=== PATIENT | male | born 1945 | race Caucasian/White ===

== ENCOUNTER 2019-12-26 09:47 | Outpatient (CLI) | payer MEDICARE, SELFPAY ==
--- NOTE | 2019-12-26 09:59 | FL_ITS ---
WS: [id number] FL barium swallow modifd [id number] REASON FOR EXAM: Oropharyngeal dysphagia FLUOROSCOPY TIME: 2.5 minutes FINDINGS: Modified barium swallow was performed by speech pathology with fluoroscopy the provided by radiology. Please see their workup for details. There was no gross abnormalities noted. FL/FL barium swallow modifd [id number] IMPRESSION: Modified barium swallow.
== END 2019-12-26 09:48 | disposition home or self-care (01) ==
LOC: RAD 09:52
PROVIDERS: Family Provider Internal Medicine; PCP Internal Medicine; Visit Provider Internal Medicine
DX: R13.12 Dysphagia, oropharyngeal phase (principal)
CPT/HCPCS: 74230; 92611

== ENCOUNTER 2021-04-14 14:14 | Outpatient (CLI) | payer OTHER, SELFPAY ==
--- NOTE | 2021-04-14 14:22 | CT_ITS ---
WS: [id number] CT NECK TECHNIQUE: Contrast-enhanced CT of the neck with coronal and sagittal reformatted images. CLINICAL INFORMATION: ORAL PHARYNGEAL LESION COMPARISON: None. DLP: 1216.[address] scans at [facility] use at least one of these dose optimization techniques: automat ed exposure control; mA and/or kV adjustment per patient size (includes targeted exams where dose is matched to clinical indication); or iterative reconstruction. FINDINGS: Lung apices are well aerated. Partially visualized intracranial contents are normal. Normal posterior fossa. Mastoid air cells are well aerated. Opacification left maxillary sinus with inspissated high attenuation secretions. Paranasal sinuses are otherwise well aerated. Normal posterior nasopharynx. Normal parapharyngeal fat. Submandibular glands are normal. Normal paro tid glands. Normal parapharyngeal fat. A few tonsillar calcifications. No evidence of supraglottic or glottic mass. Normal prevertebral soft tissues. Nodular right thyroid gland with a few nodules the l argest measuring approximately 10 mm. No cervical lymphadenopathy. Mild spondylitic changes cervical spine. CT/CT neck w con* [id number] IMPRESSION: 1. No evidence of supraglottic or glottic mass. 2. Complete opacification left maxillary sinus with inspissated secretions. 3. Paranasal sinuses and mastoid air cells are otherwise well aerated. 4. No cervical lymphadenopathy. 5. Normal salivary glands. 6. A few small nodules in the right thyroid largest measuring up to 10 mm. Thi s can be followed up with ultrasound on an elective basis.
[2021-04-14] MEDS: iohexol 300 mg/mL 100 mL Btl IV (14:51)
== END 2021-04-14 14:15 | disposition home or self-care (01) ==
PROVIDERS: PCP Internal Medicine; Visit Provider Family Medicine
DX: J39.2 Other diseases of pharynx (principal); E04.2 Nontoxic multinodular goiter
CPT/HCPCS: 70491; Q9967

== ENCOUNTER 2021-05-21 08:17 | Outpatient (CLI) | payer OTHER, MEDICARE, SELFPAY ==
--- NOTE | 2021-05-21 08:45 | USCV_ITS ---
Jaleel Latham Age: 75 Gender: M : 1945 Exam Date: 05/21/2021 08:43 Ordering Phys: Ariana Diamond MD Technologist: Lashell Nunn Exam Location: [facility] – [place] Indication: BLE CRAMPING Risk Factors: Previous Vascular Surgery: RIGHT LEFT BP: 160.0 / BP: 175.0/ 0 0 Waveform Velocity (cm/s) Velocity (cm/s) Waveform Triphasic 108.4 Iliac Prox 89.9 Triphasic Triphasic 106.2 Iliac Mid 82.2 Triphasic Triphasic Iliac Distal Triphasic 94.7 84.2 Triphasic 101.5 MEDICAL ASSEMBLER 83.2 Triphasic Biphasic 133.4 SFA Prox 115.7 Biphasic Biphasic 97.4 SFA Mid 128.8 Biphasic Biphasic 113.6 SFA Dist 98.1 Biphasic Biphasic 104.7 POP 104.7 Biphasic Triphasic 88.2 SHIM PLUG CUTTER 133.4 Triphasic Biphasic 7.0 DPA 57.4 Biphasic 1.1 FRIDA 1.1 FINDINGS Mild diffuse plaques in the iliac and femoral arteries bilaterally Near normal Doppler flow velocities Normal resting ABIs bilaterally CONCLUSIONS No evidence of any significant arterial obstruction, based on the above findings. Dr Cathy Hayes MD [facility] (Electronically Signed) Final Date: 22 May 2021 16:23 S
== END 2021-05-21 08:18 | disposition home or self-care (01) ==
LOC: RAD 08:25
PROVIDERS: PCP Family Medicine; Visit Provider Family Medicine
DX: R25.2 Cramp and spasm (principal)
CPT/HCPCS: 93925

== ENCOUNTER 2022-02-01 09:08 | Inpatient (IN) | payer OTHER, MEDICARE, SELFPAY ==
[2022-02-01] VITALS (94 sets, daily range): BP systolic 179–248; BP diastolic 69–136; PULSE 36–66; RESP 9–30; TEMP 36.5–36.9; O2SAT 88–97; BMI 30.9
--- NOTE | 2022-02-01 09:11 | XR_ITS ---
WS: [id number] PORTABLE CHEST HISTORY: dyspnea/cough COMPARISON: None available. Mildly coarse echotexture throughout the lungs. May represent chronic interstitial lung disease or mi ld edema. No pleural effusion or pneumothorax. Cardiac size: Normal. Mediastinum/Aorta: Mild ectasia aorta. RIGHT rotator cuff calcific tendinitis. The fibular pads over the thorax. XR/XR chest 1V portable [id number] IMPRESSION: 1. No pneumonia. 2. Mild interstitial thickening throughout both lungs. Differential includes i nterstitial lung disease and mild interstitial edema. 3. Mildly ectatic aorta.
--- NOTE | 2022-02-01 09:11 | ECG_ITS ---
[facility] Test Date: 2022-02-01 Pat Name: Jaleel Latham Department: Room: Gender: Male Tie Carrier: : 1945 Requested By: Chadwick Ramirez Order Number: [id number] Bart MD: Cathy Hayes M.D. Measurements Intervals [place] Rate: 45 P: ND: QRS: 70 QRSD: 137 T: -66 QT: 504 QTc: 437 Interpretive Statements Third-degree heart block with junctional escape rhythm Views nonspecific due change INTRAVENTRICULAR CONDUCTION DELAY [130+ ms QRS DURATION] CRITICAL TEST RESULT No previous ECG available for comparison Electronically Signed On 02-01-2022 22:59:01 CDT by Cathy Hayes M.D. [id number]
[2022-02-01] MEDS: aspirin 81 mg Chew Tablet 324 MG PO (09:26)
--- NOTE | 2022-02-01 09:31 | ED_ITS ---
HPI - Chest Pain General: Chief Complaint: Chest Pain Stated Complaint: chest pain / sob Time Seen by Provider: 02/01/22 09:10 Source: patient Mode of arrival: ambulatory Limitations: no limitations History of Present Illness: 76-year-old male presents emergency room complaining of chest discomfort intermittently for the last week as well as a slow heart rate. He is not on any negative inotropes is not on any beta- blockers or calcium channel blockers he has no history of atrial fibrillation. No previous history of atrial fibrillation or any other arrhythmias that he is aware of. No known coronary artery disease. MD complaint: chest pain Onset (ago): week(s) (1) Timing of current episode: episodic Prior episodes: Yes Onset: during rest Pain location: substernal Pain radiation: none Severity: mild Quality: aching and heaviness Relieving factors: nothing Exacerbating factors: nothing Associated symptoms: Reports palpitations; Deny abdominal pain, diaphoresis, dyspnea, fever(s), leg edema, nausea, sense of impending doom, syncope or vomiting Treatment prior to arrival: none Review of Systems Const: Denies: fever(s) or diaphoresis ENMT: Denies: throat pain, ear or mastoid pain, nasal discharge or nasal congestion Card: Reports: chest pain, palpitations and irregular heart rhythm; Denies: syncope Resp: Denies: dyspnea GI: Denies: abdominal pain, nausea or vomiting : Denies: flank pain, dysuria, urinary frequency or urinary urgency Skin/Breast: Denies: rash or pruritus PFSH ED PFSH: Medical History Hyperlipidemia Hypertension Family History (Updated 02/01/22 @ 11:03 by Jerardo Pablo MD) Other Cancer Social History (Updated 02/01/22 @ 11:03 by Jerardo Pbalo MD) Smoking and tobacco status: never smoked Alcohol intake: never Physical Exam Const: COMMON NORMALS: no acute distress GENERAL APPEARANCE: cooperative and comfortable ORIENTATION/CONSCIOUSNESS: Yes awake, Yes oriented to person, Yes oriented to place and Yes oriented to time HENMT: COMMON NORMALS: normocephalic, atraumatic and hearing grossly normal bilaterally HEAD & SCALP: normocephalic and atraumatic Neck/C-Spine: COMMON NORMALS: no JVD Resp: COMMON NORMALS: normal respiratory effort, No retractions, No use of accessory muscles and clear to auscultation bilaterally AUSCULTATION: clear to auscultation bilaterally Cardio: COMMON NORMALS: no JVD, regular rhythm and No murmurs present (Cardio) RATE: bradycardic RHYTHM: regular rhythm GI: COMMON NORMALS: Soft to palpation and No hepatosplenomegaly present AUSCULTATION: Yes normoactive bowel sounds PALPATION: Yes Soft to palpation, No Tenderness to palpation present (GI), No Guarding due to palpation present (GI) and Yes No hepatosplenomegaly present Extremity: COMMON NORMALS: normal to inspection, capillary refill normal, no clubbing, cyanosis or edema, no calf tenderness and no pedal edema Neuro: SENSORIUM/ORIENTATION: Yes oriented to person, Yes oriented to place and Yes oriented to time Skin: COMMON NORMALS: no rashes or lesions noted GENERAL SKIN EXAM: no rashes or lesions noted Course Vital Signs: Vital signs: Vital Signs Temperature 98.2 F 02/01/22 09:28 Pulse Rate 47 L 02/01/22 11:48 Respiratory Rate 16 02/01/22 11:48 Blood Pressure 199/88 02/01/22 11:48 Pulse Oximetry 94 02/01/22 11:48 MDM - Chest Pain Medical Decision Making Symptomatic bradycardia with what looks like a third-degree heart block. Reviewed EKGs and rhythm strips. Discussed with cardiology and with Dr. Waterman. Dr. Waterman discussed with Dr. Riddle. They will consult cardiology will admit to ICU monitor to evaluate for need for pacemaker. There is no acute ST changes on the EKG first troponin is 42 patient has serial troponins pending, Dr. Pablo will follow them out in the ICU. Medical Records I reviewed the patient's medical records. Lab Data I reviewed the patient's lab results. : 02/01/22 09:29 02/01/22 09:29 Radiology Impressions Chest X-Ray 02/01/22 09:11 IMPRESSION: 1. No pneumonia. 2. Mild interstitial thickening throughout both lungs. Differential includes interstitial lung disease and mild interstitial edema. 3. Mildly ectatic aorta. Laboratory Results WBC 6.3 10^3/uL (4.0-10.0) 02/01/22 09:29 RBC 5.38 10^6/uL (4.1-5.3) H 02/01/22: Hgb 16.1 g/dL (11.7-16.6) 02/01/22: Hct 47.9 % (42.0-52.0) 02/01/22: MCV 89.0 fl (80-94) 02/01/22: MCH 29.9 pg (28.0-34.0) 02/01/22 MCHC 33.6 g/dL (30.0-36.0) 02/01/22: RDW 13.0 % (12.1-15.1) 02/01/22: Plt Count 146 10^3/cmm (130-400) 02/01/22 MPV 12.5 fL (7.4-10.4) H 02/01/22: Neut % (Auto) 58.9 % 02/01/22: Lymph % (Auto) 28.9 % 02/01/22: [place] % (Auto) 9.1 % 02/01/22: Eos % (Auto) 2.4 % 02/01/22 Baso % (Auto) 0.5 % 02/01/22 Neut # (Auto) 3.70 10^3/uL (1.8-7.7) 02/01/22: Lymph # (Auto) 1.8 10^3/uL (0.8-4.8) 02/01/22: [place] # (Auto) 0.6 10^3/uL (0.2-0.9) 02/01/22: Eos # (Auto) 0.2 10^3/uL (0.0-0.8) 02/01/22 Baso # (Auto) 0.0 10^3/uL (0.0-0.1) 02/01/22 Nucleated RBC % (auto) 0 % 02/01/22 Nucleated RBCs # 0.0 /100WBC 02/01/22: Sodium 138 mmol/L (136-145) 02/01/22: Potassium 4.2 mmol/L (3.5-5.1) 04/11/22 09:29 Chloride 107 mmol/L (98-107) 02/01/22 09:29 Carbon Dioxide 20 mmol/L (22-29) L 02/01/22 09:29 Anion Gap 15.2 (5-19) 02/01/22 09:29 BUN 20 mg/dL (8-23) 02/01/22 09:29 Creatinine 1.0 mg/dL (0.7-1.2) 02/01/22 09:29 GFR Calculation Not Reportable 02/01/22:29 Glucose 115 mg/dL (65-115) 02/01/22 09:29 Calculated Osmolality 290 mOsm/kg (285-295) 02/01/22 09:29 Calcium 8.9 mg/dL (8.5-10.5) 02/01/22 09:29 Magnesium 2.1 mg/dL (1.7-2.3) 02/01/22 09:29 Total Bilirubin 0.9 mg/dL (0.15-1.2) 02/01/22 09:29 AST 14 U/L (0-40) 02/01/22 09:29 ALT 19 U/L (0-41) 02/01/22 09:29 Alkaline Phosphatase 79 IU/L (40-130) 02/01/22 09:29 Troponin T Baseline 42 ng/L (0-15) H 02/01/22 09:29 Total Protein 6.3 g/dL (6.6-8.7) L 02/01/22 09:29 Albumin 3.6 g/dL (3.5-5.2) 02/01/22 09:29 Globulin 2.7 g/dL (1.3-4.6) 02/01/22 09:29 TSH 3.41 uIU/mL (0.27-4.20) 02/01/22 09:29 Discharge Plan Discharge Patient Disposition: Admitted As Inpatient Admit Provider: Jerardo Pablo Condition: Stable Coding Level of Care Code ED Engineering Secretary for Chg Fwd Exam Comprehensive
[2022-02-01 09:34] LABS: Basophils % 0.5 %; Eosinophils # 0.2 10^3/uL (0.0-0.8); Eosinophils % 2.4 %; Hematocrit 47.9 % (42.0-52.0); Hemoglobin 16.1 g/dL (11.7-16.6); Lymphocytes # 1.8 10^3/uL (0.8-4.8); Lymphocytes % 28.9 %; Mean Corpuscular HGB Conc 33.6 g/dL (30.0-36.0); Mean Corpuscular Hemoglobin 29.9 pg (28.0-34.0); Mean Platelet Volume 12.5 fL (7.4-10.4); Monocytes # 0.6 10^3/uL (0.2-0.9); Monocytes % 9.1 %; Neutrophils % 58.9 %; Nucleated Red Blood Cells % 0 %; Platelet Count 146 10^3/cmm (130-400); Red Blood Count 5.38 10^6/uL (4.1-5.3); White Blood Count 6.3 10^3/uL (4.0-10.0)
[2022-02-01] MEDS: nitroglycerin 1 gm/inch oint Pkt 1 INCH TOPICAL ×3 (09:42→17:27)
[2022-02-01] MEDS: FUROsemide 10 mg/mL SDV 4mL 40 MG IVP (10:12)
[2022-02-01 10:23] LABS: Troponin(5th) Baseline 42 ng/L (0-15)
[2022-02-01 10:26] LABS: Alanine Aminotransferase 19 U/L (0-41); Albumin Level 3.6 g/dL (3.5-5.2); Alkaline Phosphatase 79 IU/L (40-130); Anion Gap 15.2 (5-19); Aspartate Amino Transferase 14 U/L (0-40); Blood Urea Nitrogen 20 mg/dL (8-23); Calcium 8.9 mg/dL (8.5-10.5); Carbon Dioxide 20 mmol/L (22-29); Chloride 107 mmol/L (98-107); Globulin 2.7 g/dL (1.3-4.6); Glucose 115 mg/dL (65-115); Osmolality Calculated 290 mOsm/kg (285-295); Potassium 4.2 mmol/L (3.5-5.1); Sodium 138 mmol/L (136-145); Total Bilirubin 0.9 mg/dL (0.15-1.2); Total Protein 6.3 g/dL (6.6-8.7)
--- NOTE | 2022-02-01 10:59 | P.HP_ITS ---
Providers/Chief Complaint Admitting Physician: Jerardo Pablo MD Primary Care Provider: Ariana Diamond MD Chief Complaint: chest pain / sob History of Present Illness Jaleel Latham is a 76 year old male presenting from home with 5 to 7 days of severe fatigue, shortness of breath, chest discomfort. He reports symptoms are significantly exacerbated with any kind of exertion. He has not been able to really care for his , who recently had an orthopedic surgery. He denies any fever, cough. He reports currently, on oxygen and with Nitropaste he does not have any chest discomfort or shortness of breath sitting completely still. He is also received aspirin, and a dose of Lasix in the emergency department. He is not nauseous. He denies any previous cardiac history. Review of Systems General: Reports: 10 or more systems reviewed and unremarkable except in HPI and below Const: Reports: fatigue and malaise; Denies: fever(s) or chills Eyes: Denies: change in vision ENMT: Denies: throat pain Card: Reports: chest pain and dyspnea on exertion Resp: Reports: dyspnea GI: Denies: abdominal pain, nausea, hematochezia or melena : Denies: flank pain or urinary urgency Musc: Denies: neck pain Skin/Breast: Denies: rash Neuro: Denies: headache(s) Psych: Denies: anxiety or depression Endo: Denies: polyuria Denis/Lymph: Denies: easy bruising All/Imm: Denies: urticaria Medications/Allergies Home Medications Medication Instructions Recorded Confirmed Last Taken Type acetaminophen 500 mg tablet 500 mg PO BEDTIME 02/01/22 02/01/22 01/31/22 History atorvastatin 20 mg tablet 20 mg PO QAM 02/01/22 02/01/22 02/01/22 05:00 History diclofenac sodium 1 % topical gel 2 g TOPICAL BID PRN 02/01/22 02/01/22 Unknown History (Voltaren Arthritis Pain) glucosamine sulf dipot 1 cap PO BID 02/01/22 02/01/22 02/01/22 05:00 History chlr,msm,chond 550 mg-C 30 mg-carson 1 mg capsule (Glucosamine Chondroitin) lidocaine 5 % topical patch 1 patch TOPICAL DAILY PRN 02/01/22 02/01/22 Unknown History lisinopril 10 mg tablet 10 mg PO QAM 0402/01/22 02/01/22 05:00 History tamsulosin 0.4 mg capsule 0.4 mg PO BEDTIME 02/01/22 02/01/22 01/31/22 History Allergies Allergy/AdvReac Type Severity Reaction Status Date / Time No Known Allergies Allergy Verified 02/01/22 11:02 PFSH Acute PFSH: Medical History Hyperlipidemia Hypertension Family History (Updated 02/01/22 @ 11:03 by Jerardo Pablo MD) Other Cancer Social History (Updated 02/01/22 @ 11:03 by Jerardo Pablo MD) Smoking and tobacco status: never smoked Alcohol intake: never Other PFSH information: Supplemental PFSH Information: Some type of benign tumor excision, soft tissue below umbilicus, suspect lipoma or sebaceous cyst. Vitals/I&O/Wt Last Vital Signs Temp 98.2 F 02/01/22 09:28 Pulse 36 L 02/01/22 10:14 Resp 13 02/01/22 10:14 BP 204/105 02/01/22 10:14 Pulse Ox 95 02/01/22 10:14 Weight last 48 hrs Weight 87.09 kg Physical Exam Narrative: General exam is a white male, no distress HEENT: Pupils equally round. Oropharynx clear. Neck is supple no lymphadenopathy or thyromegaly Cardiovascular bradycardic, irregular, no murmur Lungs clear to auscultation bilaterally. No wheezes or crackles Abdomen is soft, positive bowel sounds. No obvious organomegaly exam is deferred Extremities no cyanosis clubbing , cap refill brisk. Trace edema is noted. Skin is no rash Neuro no obvious focal deficits. Data : 02/01/22 09:29 02/01/22 09:29 Other Labs: LFTs normal Troponin 42 Albumin 3.6 Calcium 8.9 TSH and magnesium have been ordered Echocardiogram has been ordered Chest x-ray mild interstitial edema EKG demonstrates significant bradycardia. Intraventricular conduction delay is present. I suspect third-degree heart block with junctional escape rhythm. 1 PVC is noted. Official cardiology reading pending. A&P Assessment and plan (1) Heart block AV third degree: Certainly high degree heart block. Official cardiology opinion pending. Pacer pads have been placed. Admit to ICU Check magnesium, TSH, echocardiogram Cardiology consultation Associated with chest discomfort, shortness of breath, severe exertional symptoms. At this point we will keep in bed rest. Nitroglycerin, Lasix, aspirin have been given by the emergency department. Continue nitroglycerin ointment currently No evidence that he has been on calcium channel blockers, or beta blockers. Serial troponins. If significant delta would consider full anticoagulation Hydration Status: Acute (2) Hyperlipidemia: Continue statin, plan lipid profile in the morning Status: Acute (3) Hypertension: Obtain his home medication list. Likely will continue lisinopril in the hospital which is the medication he indicates he is on. Status: Acute Plan History of BPH. Continue Flomax. Full code Lovenox will suffice for DVT prophylaxis Attestations Medical Necessity Statement*: Will need greater than 2 midnight stay for evaluation and treatment of significant bradycardia and high degree AV block. Coding Level of Care Code Acute Sea Air Land Officer for Rere Callaway Diagnoses Heart block AV third degree I44.2 Hyperlipidemia E78.5 Hypertension I10
--- NOTE | 2022-02-01 11:04 | USCV_ITS ---
Jaleel Latham Age: 76 Gender: M : 1945 Exam Date: 02/01/2022 14:31 Ordering Phys: Jerardo Pablo MD Technologist: Lashell Nunn [place]am Location: [facility] [place] Indication: ARRHYTHMIA BP: 187 / 69 HR: 39 Rhythm: Other Technical Quality: Adequate MEASUREMENTS (Male / Female) Normal Values 2D ECHO LV Diastolic Diameter PLAX 5.0 cm 4.2 - 5.9 / 3.9 - 5.3 cm LV Systolic Diameter PLAX 3.1 cm IVS Diastolic Thickness 1.6 cm 0.6 - 1.0 / 0.6 - 0.9 cm IVS Systolic Thickness 2.1 cm LVPW Diastolic Thickness 1.7 cm 0.6 - 1.0 / 0.6 - 0.9 cm LVPW Systolic Thickness 2.0 cm LVOT Diameter 2.0 cm LV Ejection Fraction 2D Teich 69.7 % LV Ejection Fraction MOD 2C 61.8 % LV Ejection Fraction 2C AL 62.0 % LA Diameter 3.6 cm LA Width 4.0 cm LA Height 4.1 cm RA Width 4.5 cm RA Height 5.3 cm Aorta at Sinotubular Diameter 2.8 cm M-MODE Aortic Annulus Diameter 3.4 cm LA Ao Ratio MM 1.0 DOPPLER AV Peak Velocity 210.3 cm/s LVOT Peak Velocity 197.0 cm/s AV Area Cont Eq vti 3.0 cm squared AV Area Cont Eq pk 2.9 cm squared MV Peak Velocity 144.0 cm/s MV Area PHT 2.2 cm squared Mitral E to A Ratio 0.6 MV E' Velocity 35.0 cm/s Mitral E to MV E' Ratio 5.2 Mitral E to LV E' Lateral Ratio 5.2 Mitral E to LV E' Septal Ratio 5.3 TR Peak Velocity 234.2 cm/s TR Peak Gradient 21.9 mmHg TR Mean Velocity 152.0 cm/s TR Mean Gradient 11.2 mmHg TR Velocity Time Integral 61.4 cm TV Peak E Velocity 47.0 cm/s Right Atrial Pressure 3.0 mmHg Pulmonary Artery Systolic Pressu 24.9 mmHg PV Peak Velocity 149.0 cm/s RV Acceleration Time 0.1 s RV Ejection Time 0.3 s RV AcT/ET 0.4 FINDINGS Left Ventricle Normal left ventricular size, systolic function and mildly increased wall thickness, with no regional wall motion abnormalities. Mild concentric left ventricular hypertrophy. Left ventricular ejection fraction is estimated at 65 %. Abnormal diastolic function. Right Ventricle Normal right ventricular size and systolic function, RVSP 25 mmHg. Right Atrium Normal right atrial size. Right atrial pressure estimated at 3 mm Hg. Left Atrium Mildly increased left atrial size. Mitral Valve Structurally normal mitral valve. No mitral valve stenosis. Mild mitral valve regurgitation. Aortic Valve Probably tricuspid aortic valve. No aortic valve stenosis. Mild to moderate eccentric aortic valve regurgitation. Tricuspid Valve Structurally normal tricuspid valve. No tricuspid valve stenosis. Mild tricuspid valve regurgitation. Pulmonic Valve Pulmonic valve not well visualized. No pulmonary valve stenosis. Trace pulmonary valve regurgitation. Pericardium No pericardial effusion. Aorta Normal size aortic root. Normal-sized inferior vena cava with normal respiratory variation. CONCLUSIONS 1. Normal left ventricular size, systolic function and mildly increased wall thickness, with no regional wall motion abnormalities. Left ventricular ejection fraction is estimated at 65 %. Abnormal diastolic function. 2. Mild mitral valve regurgitation. 3. Mild to moderate eccentric aortic valve regurgitation. 4. No prior similar studies to compare. Gina Riddle MD (Electronically Signed) Final Date: 01 February 2022 17:46 S
--- NOTE | 2022-02-01 11:11 | ECG_ITS ---
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 Measurements Intervals [place] Rate: 45 P: MD: QRS: -61 QRSD: 137 T: 85 QT: 517 QTc: 452 Interpretive Statements Third-degree heart block with a junctional escape beats/premature supraventricular beats with ABERRANT CONDUCTION OR VENTRICULAR PREMATURE COMPLEXES RIGHT BUNDLE BRANCH BLOCK [120+ ms QRS DURATION, UPRIGHT V1, 40+ ms S IN I/aVL/V4/V5/V6].LEFT ANTERIOR FASCICULAR BLOCK [QRS AXIS <= -45, QR IN I, RS IN II].MODERATE VOLTAGE CRITERIA FOR LVH, CONSIDER NORMAL VARIANT [MEETS CRITERIA IN ONE OF: R(aVL), S(V1), R(V5), R(V5/V6)+S(V1)] POSSIBLE SEPTAL MYOCARDIAL INFARCTION , OF INDETERMINATE AGE [30 ms Q WAVE IN V1/V2].Compared to ECG 02/01/2022 09:23:03 Ventricular premature complex(es) now present.Aberrant conduction of supraventricular beat(s) now present.Right bundle-branch block now present Left anterior fascicular block now present.Myocardial infarct finding now present.Sinus rhythm no longer present.Intraventricular conduction delay no longer present Electronically Signed On 02-01-2022 23:11:53 CDT by Cathy Hayes M.D. [id number]
--- NOTE | 2022-02-01 11:16 | PC.PHAR ---
pt states he thinks the medications entered are the only meds he takes-called pts bunny states she thinks the medications entered are the only meds the pt takes also-pt states [facility] about 8:30 and states the [facility] gave him 2 prescriptions for something pt states he didnt fill the rxs states he came here
[2022-02-01 11:27] LABS: Magnesium 2.1 mg/dL (1.7-2.3); Thyroid Stimulating Hormone 3.41 uIU/mL (0.27-4.20)
[2022-02-01] MEDS: enoxaparin 40 mg/0.4 mL Syringe SUBCUT (12:33)
[2022-02-01 12:35] LABS: Troponin 5 2HR 21.34 ng/L (0-15)
[2022-02-01 12:36] LABS: Troponin 5 2HR Delta -20.66 ABS# (0-10)
[2022-02-01] MEDS: hyDRALAzine 20 mg/mL INJ 1 mL 10 MG IVP ×2 (14:48→19:42)
--- NOTE | 2022-02-01 15:11 | ECG_ITS ---
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 Measurements Intervals [place] Rate: 47 P: 23 [place]: 240 QRS: -61 QRSD: 136 T: 100 QT: 619 QTc: 550 Interpretive Statements Second-degree type II AV block with intermittent aberrant conduction POSSIBLE LEFT ATRIAL ENLARGEMENT [-0.1mV P-WAVE IN V1/V2] INTRAVENTRICULAR CONDUCTION DELAY [130+ ms QRS DURATION] LEFT VENTRICULAR HYPERTROPHY AND ST-T CHANGE [VOLTAGE CRITERIA PLUS ST/T ABNORMALITY]POSSIBLE SEPTAL MYOCARDIAL INFARCTION , OF INDETERMINATE AGE [30 ms Q WAVE IN V1/V2] PROLONGED QT INTERVAL CRITICAL TEST RESULT Compared to ECG 02/01/2022 11:54:45 First degree AV block now present Intraventricular conduction delay now present ST (T wave) deviation now present.Prolonged QT interval now present Atrial fibrillation no longer present Aberrant conduction of supraventricular beat(s) no longer present Right bundle-branch block no longer present.Left anterior fascicular block no longer present. Myocardial infarct finding still present Electronically Signed On 02-01-2022 23:21:02 CDT by Cathy Hayes M.D. [id number]
[2022-02-01 15:35] LABS: Troponin 5 6HR 38.49 ng/L (0-15)
[2022-02-01 15:41] LABS: Troponin 5 6HR Delta -3.51 ng/L (0-12)
--- NOTE | 2022-02-01 15:47 | PC.NURSE ---
Dr. Pablo notified of patients blood pressure 187/136. Order received for 10mg hydralazine IVP Q4hr. Order followed at 1448.
[2022-02-01] MEDS: morphine 4 mg/mL SDV 1 mL IVP ×2 (15:54→19:31)
[2022-02-01] MEDS: lisinopril 10 mg Tablet PO (16:58)
--- NOTE | 2022-02-01 17:27 | PM.CONSULT ---
Providers/Reason For Consult Consulting Physician/Specialty*: Dr. Riddle, Cardiology Reason for Consult*: High-grade AV block, bradycardia Attending Physician: Jerardo Pablo MD Primary Care Provider: Ariana Diamond MD History of Present Illness History of Present Illness Jaleel Latham is a 76 year old male with past medical history of hypertension, hyperlipidemia and benign prostatic hypertrophy presented for evaluation of bradycardia, tiredness/fatigue dizziness and chest pain. Patient recently underwent surgery and he has been taking care of her at home. For the past week he noticed he was feeling more tired/ fatigued, SOB as well as noticed intermittent episodes of dizziness and few episodes of chest pain described as bruised feeling all over the chest. He checked his blood pressure and heart rate at home and noticed blood pressure ranging systolically 200s and heart rate ranging from 40s to 60s. He presented to ER for further evaluation where he was noted to be in high-grade AV block and hence I was asked to evaluate the patient for further management. Review of Systems General: Reports: 10 or more systems reviewed and unremarkable except in HPI and below Const: Reports: fatigue and malaise; Denies: fever(s) or chills Eyes: Denies: change in vision ENMT: Denies: throat pain Card: Reports: chest pain and dyspnea on exertion Resp: Reports: dyspnea GI: Denies: abdominal pain, nausea, hematochezia or melena : Denies: flank pain or urinary urgency Musc: Denies: neck pain Skin/Breast: Denies: rash Neuro: Denies: headache(s) Psych: Denies: anxiety or depression Endo: Denies: polyuria Denis/Lymph: Denies: easy bruising All/Imm: Denies: urticaria Medications/Allergies Home Medications Medication Instructions Recorded Confirmed Last Taken Type acetaminophen 500 mg tablet 500 mg PO BEDTIME 02/01/22 02/01/22 01/31/22 History atorvastatin 20 mg tablet 20 mg PO QAM 02/01/22 02/01/22 02/01/22 05:00 History diclofenac sodium 1 % topical gel 2 g TOPICAL BID PRN 02/01/22 02/01/22 Unknown History (Voltaren Arthritis Pain) glucosamine sulf dipot 1 cap PO BID 02/01/22 02/01/22 02/01/22 05:00 History chlr,msm,chond 550 mg-C 30 mg-carson 1 mg capsule (Glucosamine Chondroitin) lidocaine 5 % topical patch 1 patch TOPICAL DAILY PRN 02/01/22 02/01/22 Unknown History lisinopril 10 mg tablet 10 mg PO QAM 02/01/22 02/01/22 02/01/22 05:00 History tamsulosin 0.4 mg capsule 0.4 mg PO BEDTIME 02/01/22 02/01/22 01/31/22 History Allergies Allergy/AdvReac Type Severity Reaction Status Date / Time No Known Allergies Allergy Verified 02/01/22 11:02 Current Medications Generic Name Dose Route Start Last Admin Trade Name Freq PRN Reason Stop Dose Admin Enoxaparin Sodium 40 mg 02/01/22 13:00 02/01/22 12:33 Enoxaparin 40 Mg/0.4 Ml Syringe SUBCUT 40 mg Q24H LEV Administration Hydralazine HCl 10 mg 02/01/22 14:13 02/01/22 14:48 Hydralazine 20 Mg/Ml Inj 1 Ml IVP 10 mg Q4H PRN Administration HYPERTENSION Morphine Sulfate 4 mg 02/01/22 11:54 02/01/22 15:54 Morphine 4 Mg/Ml Sdv 1 Ml IVP 4 mg Q4H PRN Administration SEVERE PAIN Nitroglycerin 1 inch 02/01/22 11:15 02/01/22 12:33 Nitroglycerin 1 Gm/Inch Oint Pkt TOPICAL 1 inch Q6H LEV Administration PFSH Acute PFSH: Medical History (Updated 02/01/22 @ 17:40 by Gina Riddle MD) BPH (benign prostatic hyperplasia) Hyperlipidemia Hypertension Family History Other Cancer Social History Smoking and tobacco status: never smoked Alcohol intake: never Vitals/I&O/Wt Last Vital Signs Temp 97.7 F 02/01/22 11:45 Pulse 48 L 02/01/22 16:00 Resp 15 02/01/22 16:00 BP 219/95 02/01/22 16:00 Pulse Ox 92 02/01/22 16:00 02/01/22 02/01/22 02/01/22 06:59 14:59 22:59 Output Total 750 / 750 450 / 1200 Balance -750 / -750 -450 / -1200 Weight last 48 hrs Weight 192 lb Physical Exam Narrative: GENERAL: Averagely built and averagely nourished in no acute distress HEENT: Extraocular movement intact. Pupils equal round reactive to light. No pallor or icterus. NECK: central trachea, No JVD. No carotid bruit. CARDIOVASCULAR SYSTEM: S1-S2 irregular. No murmur rubs or gallops. RESPIRATORY SYSTEM: Chest clear to auscultation. No wheezes rhonchi or rubs heard. No use of accessory muscles. ABDOMEN: Soft, nontender and nondistended. Normal bowel sounds present. EXTREMITIES: No cyanosis, clubbing or edema. No signs of chronic venous insufficiency. 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 No focal neurological deficits. Cranial nerves intact. SKIN: Normal turgor and temperature. No breakdown, rash or nail changes noted. PSYCH: Normal insight and judgment. Data : 02/01/22 09:29 02/01/22 09:29 A&P Assessment and plan (1) Heart block AV third degree: EKG with sinus rhythm with third-degree AV block. A-V dissociation. Interventricular conduction delay. LVH -Patient does not have many CAD risk factors. No active chest pain -Systolic blood pressure in 200's. -Normal LV function with no regional wall motion abnormality. -Patient apparently had junctional escape rhythm with heart rate in mid 40s. Remains asymptomatic while in bed. -normal TSH Case was discussed with Dr. Hayes and decision was made to proceed with dual-chamber permanent pacemaker placement tomorrow afternoon. Patient is left-handed. Status: Acute (2) Hypertension: Blood pressure elevated. -Increase lisinopril to 10 mg twice a day and start on amlodipine 5 mg daily. -Continue to use hydralazine as needed in the meantime. Status: Acute (3) Hyperlipidemia: Status: Acute (4) BPH (benign prostatic hyperplasia): Status: Acute Plan Thank you for allowing me to participate in patient's care. Please feel free to call with questions or concerns. 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
[2022-02-01] MEDS: amlodipine 5 mg Tablet PO (17:58)
[2022-02-01] MEDS: acetaminophen 325 mg Tablet 650 MG PO (18:37)
[2022-02-01] MEDS: tamsulosin 0.4 mg Capsule PO (21:17)
--- NOTE | 2022-02-01 21:52 | PM.MISC ---
Miscellaneous Note Purpose of Documentation: Prepacemaker evaluation Note: This patient admitted to hospital with complaints of headache, dizziness, chest tightness and shortness of breath. He was found to be in third-degree heart block with a heart rate in the 40s and upper 30s. Hemodynamically seems to be stable. She was evaluated by Dr. Riddle. For further management of his condition, he requires a permanent pacer implantation. This patient has no reversible cause for the heart block. He is found to be hypertensive with a blood pressure in the 200 range. He is currently on antihypertensive medications. Echocardiogram revealed normal LV size and ejection fraction. He has mild MR and mild to moderate AR. The chest x-ray showed a normal cardia silhouette with no lung infiltrates. He is afebrile. He was found to have slightly elevated troponin T with no significant delta. The thyroid function is normal. Has no history of any dye allergies. On examination Alert and oriented x3. Not in any acute distress. The first heart sound is variable. Second heart sound is normal. No S3. Chest is clear with no rales or rhonchi. No pericardial rub. Abdomen is nontender. Extremities no center edema. I agree with the permanent pacer implantation for further management of his condition. The risk of bleeding, hematoma, vascular injury, pneumothorax, infection, renal failure and other concomitant complications were explained in detail. The patient understood this well and consented to proceed. We will go ahead and make arrangements for the permanent pacemaker tomorrow
[2022-02-02] VITALS (19 sets, daily range): BP systolic 106–170; BP diastolic 55–92; PULSE 44–96; RESP 6–20; TEMP 36.6–36.8; O2SAT 90–95; BMI 31.3
[2022-02-02] MEDS: hyDRALAzine 50 mg Tablet PO ×4 (02:16→20:30)
[2022-02-02] MEDS: nitroglycerin 1 gm/inch oint Pkt 1 INCH TOPICAL ×3 (02:17→16:15)
[2022-02-02] MEDS: ceFAZolin 1,000 MG in sodium chloride 0.9% (plus) 50 ML 100 MG IV (02:17)
[2022-02-02] MEDS: sodium chloride 0.9% 1,000 ML 75 ML IV (02:27)
[2022-02-02] MEDS: atorvastatin 40 mg Tablet 20 MG PO (05:13)
[2022-02-02] MEDS: lisinopril 20 mg Tablet PO (05:14)
[2022-02-02 06:02] LABS: Basophils % 0.2 %; Eosinophils % 0.3 %; Hematocrit 43.8 % (42.0-52.0); Hemoglobin 15.1 g/dL (11.7-16.6); Lymphocytes # 0.9 10^3/uL (0.8-4.8); Lymphocytes % 10.3 %; Mean Corpuscular HGB Conc 34.5 g/dL (30.0-36.0); Mean Corpuscular Hemoglobin 30.5 pg (28.0-34.0); Mean Corpuscular Volume 88.5 fl (80-94); Mean Platelet Volume 12.6 fL (7.4-10.4); Monocytes # 0.6 10^3/uL (0.2-0.9); Monocytes % 6.7 %; Neutrophils # 7.51 10^3/uL (1.8-7.7); Neutrophils % 82.1 %; Nucleated Red Blood Cells % 0 %; Platelet Count 159 10^3/cmm (130-400); Red Blood Count 4.95 10^6/uL (4.1-5.3); White Blood Count 9.2 10^3/uL (4.0-10.0)
[2022-02-02 06:26] LABS: Blood Urea Nitrogen 22 mg/dL (8-23); Calcium 9.1 mg/dL (8.5-10.5); Carbon Dioxide 21 mmol/L (22-29); Chloride 107 mmol/L (98-107); Chol HDL Ratio 3.68 mg/dL (1.0-5.00); Cholesterol 125 mg/dL (0-200); Glucose 117 mg/dL (65-115); HDL Cholesterol 34 mg/dL (60-100); LDL Cholesterol Calculated 69 mg/dL (50-129); LDL HDL Ratio 2.03 RATIO (0.00-3.22); Osmolality Calculated 292 mOsm/kg (285-295); Sodium 139 mmol/L (136-145); Triglycerides 108 mg/dL (0-150)
[2022-02-02 06:27] LABS: Alanine Aminotransferase 14 U/L (0-41); Albumin Level 3.2 g/dL (3.5-5.2); Alkaline Phosphatase 67 IU/L (40-130); Aspartate Amino Transferase 12 U/L (0-40); Blood Urea Nitrogen 22 mg/dL (8-23); Carbon Dioxide 20 mmol/L (22-29); Chloride 107 mmol/L (98-107); Globulin 2.4 g/dL (1.3-4.6); Glucose 118 mg/dL (65-115); Osmolality Calculated 290 mOsm/kg (285-295); Sodium 138 mmol/L (136-145); Total Protein 5.6 g/dL (6.6-8.7)
[2022-02-02 06:48] LABS: INR 1.08 (0.8-1.2); Partial Thromboplastin Time 32.3 SECONDS (23.9-36.7)
--- NOTE | 2022-02-02 07:20 | P.PN_ITS ---
Subjective Subjective: No complaints overnight. Denies any chest pain, shortness of breath, or dizziness. Ready to get his pacemaker. Medications: Reviewed: Yes Vitals/I&O/Wt Last Vital Signs Temp 97.9 F 02/02/22 06:00 Pulse 50 L 02/02/22 06:00 Resp 19 H 02/01/22 19:31 BP 198/78 02/01/22 18:15 Pulse Ox 92 02/01/22 18:30 02/01/22 02/02/22 02/02/22 22:59 06:59 14:59 Intake Total 630 / 630 0 / 630 Output Total 1050 / 1800 200 / 2000 Balance -420 / -1170 -200 / -1370 Weight last 48 hrs Weight 87.997 kg Weight 87.09 kg Physical Exam Narrative: General exam is a white male, no distress Neck is supple no lymphadenopathy or thyromegaly Cardiovascular bradycardic, irregular, 2/6 systolic murmur Lungs clear to auscultation bilaterally. No wheezes or crackles Abdomen is soft, positive bowel sounds. No obvious organomegaly Extremities no cyanosis clubbing , cap refill brisk. Trace edema is noted. Skin is no rash Neuro no obvious focal deficits. Data : 02/02/22 05:25 02/02/22 05:25 A&P Assessment and plan (1) Heart block AV third degree: Third-degree heart block. Pacemaker planned today. Appreciate cardiology input. Magnesium, TSH normal Echocardiogram demonstrated preserved EF, mild mitral regurgitation, mild to moderate aortic valve regurgitation No evidence that he has been on calcium channel blockers, or beta blockers. Status: Acute (2) Hyperlipidemia: Continue statin Status: Acute (3) Hypertension: Continue lisinopril Hydralazine has been added Currently on nitroglycerin ointment. After pacemaker placed, will discontinue this and adjust medication as needed Norvasc added as well. Hydralazine IV as needed Status: Acute Plan History of BPH. Continue Flomax. Full code Lovenox will suffice for DVT prophylaxis Attestations Medical Necessity Statement*: Needs continued hospitalization for definitive treatment secondary to third-degree heart block. 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
[2022-02-02] MEDS: pantoprazole DR 40 mg Tablet PO (08:52)
[2022-02-02] MEDS: amlodipine 5 mg Tablet PO (08:53)
--- NOTE | 2022-02-02 08:59 | PC.NURSE ---
physician rounding Dr. Hayes at bedside, gave v.o. to give ordered antibiotic when lab animal technician calls, MAR shows it was given this AM at 0200, Dr. Huang ordered to give it again. and to hold ordered Aspirin
--- NOTE | 2022-02-02 09:07 | PC.NURSE ---
propagator laborer called, advised this nurse to send ordered antibiotic with patient when phlebotomy lab assistant staff comes
[2022-02-02] MEDS: morphine 4 mg/mL SDV 1 mL IVP ×2 (09:34→20:30)
--- NOTE | 2022-02-02 12:08 | W.PM.OPSUD ---
Surgery/Procedure H&P Update DATE OF PROCEDURE: February 02, 2022 DATE H&P PERFORMED: 02/01/22 H&P UPDATE INFORMATION: I have reviewed H&P completed within last 30 days, I have examined patient prior to procedure, No changes to prior documentation and Changes to prior documentation as noted here PRIMARY INDICATION FOR PROCEDURE: symptomatic bradycardia, 3rd degree HB PLANNED PROCEDURE: Operation Date: 02/02/22 16:00 Proposed Procedures p Pacemaker Insertion(Not Applicable) - Catyh Hayes MD Trans venos PPM dual chamber PATIENT REASSESSED PRIOR TO SEDATION, WITH NO CHANGE NOTED: Yes PHYSICAL EXAM: alert, clear to auscultation bilaterally and regular rate & rhythm (irregular rate ) AIRWAY EVAL/ANESTHESIA PLAN: normal airway, see other exam findings, ASA II, Monitored Anesthesia, Local Anesthesia and Risks, benefits & alternatives of sedation and/or procedure discussed
--- NOTE | 2022-02-02 15:14 | PC.NURSE ---
laboratory sampler staff advised to hold ordered Lovenox
--- NOTE | 2022-02-02 15:18 | PC.NURSE ---
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
[2022-02-02] MEDS: tamsulosin 0.4 mg Capsule PO (20:30)
--- NOTE | 2022-02-02 22:13 | P.OP_ITS ---
Operative Report Date of procedure: February 02, 2022 Brief History: This is a 76-year-old white male, is admitted to the hospital with complaints of headache, dizziness, shortness of breath and chest pain. He was found to have accelerated hypertension and intermittent third-degree heart block. His heart rate was in the 30s and low 40s. In view of his symptomatic bradycardia and high degree AV block, for further management of his condition, a permanent pacemaker implantation was requested. Procedure: LOCATION: Cardiac catheterization lab PREOPERATIVE DIAGNOSES: Symptomatic intermittent high degree AV block POSTOPERATIVE DIAGNOSES: Same. COMPLICATIONS: None. ESTIMATED BLOOD LOSS: Around 10 milliliters. BRIEF HISTORY: As mentioned above A dual-chamber permanent pacemaker implantation was recommended for symptom relief and AV synchrony The procedure was explained to the patient in detail with the risks and benefits. The risks of bleeding, hematoma, vascular injury, infection, pneumothorax, myocardial perforation and other concomitant complications were explained in detail, which the patient understood well and consented to proceed. PROCEDURE DESCRIPTION: The patient was brought to the Cardiac Catheterization Lab. The left and the right side of the neck and the subclavian area were cleaned and draped in a sterile fashion. 1% Xylocaine was used as the local anesthetic agent. Right subclavian venogram was performed by injecting 20 milliliters of Omnipaque through the left antecubital vein. A right subclavian venous access was obtained using a micropuncture needle system and under venographic guidance. . A two-inch long incision was made 2.0 centimeters below the midclavicular region. By sharp and blunt dissection, a pacemaker pocket was made. A second venous access was obtained using under micropuncture needle system. Over the first guidewire, a 7-Ecuadorean venous sheath with dilator was advanced. The venous dilator and the guidewire were taken out. A screw-in ventricular lead was advanced through the venous sheath and was positioned towards the right ventricle. Under fluoroscopic guidance, the ventricular lead was positioned toward the right ventricular apex. Good pacing and sensing thresh olds were obtained. The lead was secured to the endocardium by advancing the helix. The stability of the lead was tested by gentle twisting movements and also by asking the patient to take some deep breaths and cough. The venous sheath was peeled off, at this time. The lead was secured to the pectoralis fascia, by suturing with 1-0 Surgilon. Over the second guidewire, another 7- Ecuadorean venous sheath with dilator was advanced. The dilator and the guidewire were taken out. Under fluoroscopic guidance, an atrial lead (Medtronic), was advanced and positioned toward the right atrium. The lead was positioned in the right atrial appendage. Good pacing and sensing thresholds were obtained. The lead was secured to the endocardium by advancing the helix. Stability of the lead was tested by gentle twisting movements and also by asking the patient to take some deep breaths and cough. The venous sheath was peeled off, at this time. The lead was secured to the pectoralis fascia by suturing with 0-Surgilon. The pacemaker pocket was copiously irrigated with vancomycin solution. Complete hemostasis was achieved. Sponge counts were confirmed. The leads were attached to a Medtronic generator. The leads were positioned behind the generator and the generator was attached to the pectoralis fascia by suturing with 0-Surgilon. The pocket was closed in layers. Skin was approximated using 4-0 Vicryl. IMPLANTED DEVICES: ATRIAL LEAD: Model number: 5076/45 Serial number: [id number] Make: Medtronic VENTRICULAR LEAD: Model number: 5076/52 Serial number: [id number] Make: Medtronic GENERATOR Brand: Trion XT DR MRI LindaMimira Model number: [id number] Serial number: [id number] Make: Medtronic IMPLANTATION DATA: With the pacing system analyzer, the R wave sensing was 3.5 millivolts with a lead impedance of 513 and a pacing threshold was 1.125 volts at 0.4 milliseconds. In the atrium, the atrial sensing was 4.5 millivolts with a lead impedance of 437 ohms and a pacing threshold was 0.8 volts at 0.4 milliseconds. Through the device, the R-wave sensing was 4.3 millivolts with a lead impedance of 513 and a pacing threshold was 1.25 volts at 0.4 milliseconds. The atrial sensing was 5.0 millivolts with a lead impedance of 418 ohms and a pacing threshold of 0.5 volts at 0.4 milliseconds. The pacemaker was set for DDDR mode with upper rate of 130 and a lower rate of 60. A pressure dressing was applied over the pacemaker site. The patient was transferred to the Medical Floor in stable condition. A chest x-ray was ordered to confirm the lead position and also to rule out any pneumothorax.
[2022-02-03] VITALS (24 sets, daily range): BP systolic 99–171; BP diastolic 56–89; PULSE 70–91; RESP 8–33; TEMP 36.3–36.9; O2SAT 90–96; BMI 31.9
[2022-02-03 05:04] LABS: Basophils % 0.4 %; Eosinophils % 0.4 %; Hematocrit 42.9 % (42.0-52.0); Hemoglobin 14.3 g/dL (11.7-16.6); Lymphocytes % 14.1 %; Mean Corpuscular HGB Conc 33.3 g/dL (30.0-36.0); Mean Corpuscular Hemoglobin 29.8 pg (28.0-34.0); Mean Corpuscular Volume 89.4 fl (80-94); Mean Platelet Volume 12.6 fL (7.4-10.4); Monocytes # 0.8 10^3/uL (0.2-0.9); Monocytes % 11.8 %; Neutrophils % 72.9 %; Nucleated Red Blood Cells % 0 %; Platelet Count 137 10^3/cmm (130-400); Red Cell Distribution Width 13.2 % (12.1-15.1); White Blood Count 7.1 10^3/uL (4.0-10.0)
[2022-02-03 05:32] LABS: Anion Gap 16.2 (5-19); Blood Urea Nitrogen 37 mg/dL (8-23); Calcium 8.5 mg/dL (8.5-10.5); Carbon Dioxide 20 mmol/L (22-29); Chloride 106 mmol/L (98-107); Glucose 112 mg/dL (65-115); Osmolality Calculated 295 mOsm/kg (285-295); Potassium 4.2 mmol/L (3.5-5.1); Sodium 138 mmol/L (136-145)
[2022-02-03] MEDS: atorvastatin 40 mg Tablet 20 MG PO (05:54)
[2022-02-03] MEDS: lisinopril 20 mg Tablet PO (05:55)
--- NOTE | 2022-02-03 06:00 | ECG_ITS ---
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 Measurements Intervals [place] Rate: 93 P: 55 ID: [id number] QRS: -78 QRSD: 173 T: 100 QT: 434 QTc: 540 Interpretive Statements AV paced rhythm ABNORMAL RHYTHM ECG Compared to ECG 02/01/2022 16:10:28 Aberrant conduction of supraventricular beat(s) no longer present Intraventricular conduction delay no longer present Left ventricular hypertrophy no longer present ST (T wave) deviation no longer present Myocardial infarct finding no longer present Prolonged QT interval no longer present Electronically Signed On 02-03-2022 23:31:37 CDT by Cathy Hayes M.D. [id number]
--- NOTE | 2022-02-03 06:00 | XR_ITS ---
WS: [id number] CHEST, 1 view. HISTORY: Post permanent pacemaker placement; visualize lead tip COMPARISON: 02/01/2022 Status post insertion of a RIGHT subclavian dual lead permanent pacer. Lead wires appear appropriatel y positioned. Lung volumes are decreased. Mild increased opacifications at the hilar regions probably due to supine position. No pleural effusion or pneumothorax. Cardiac size: Mildly enlarged cardiac silhouette. Mediastinum/Aorta: Mild atherosclerosis aorta. No osseous abnormality seen. XR/XR chest 1V 30651 IMPRESSION: 1. Status post RIGHT subclavian dual lead pacer insertion. No complications ar e apparent. 2. Mild fullness at the hilar regions is probably due to supine position of th e patient. These findings were not present on 02/01/2022.
[2022-02-03] MEDS: sodium chloride 0.9% 1,000 ML 75 ML IV ×2 (06:19→12:20)
--- NOTE | 2022-02-03 07:04 | PC.NURSE ---
Pacemaker interrogated at this time. Medtronic reports 94% paced, no arrhythmias overnight. Patient has no complaint of chest pain, shortness of breath, or pressure.
[2022-02-03] MEDS: pantoprazole DR 40 mg Tablet PO (08:41)
[2022-02-03] MEDS: hyDRALAzine 25 mg Tablet PO ×4 (08:41→20:59)
[2022-02-03] MEDS: aspirin 325 mg EC Tablet PO (08:41)
[2022-02-03] MEDS: amlodipine 5 mg Tablet PO (08:41)
--- NOTE | 2022-02-03 08:44 | P.PN_ITS ---
Subjective Subjective: Jaleel reports no chest pain or shortness of breath last night. He did have some lower blood pressures, and blood pressure medication was held. Creatinine was higher this morning. He has not yet been up and ambulatory. He denies any issues with urination. Medications: Reviewed: Yes Vitals/I&O/Wt Last Vital Signs Temp 98.4 F 02/03/22 04:00 Pulse 79 02/03/22 07:00 Resp 12 02/03/22 07:00 BP 127/68 02/03/22 07:00 Pulse Ox 92 02/03/22 07:00 02/02/22 02/03/22 02/03/22 22:59 06:59 14:59 Intake Total 1310 / 1310 840 / 2150 60 / 60 Output Total 750 / 750 300 / 1050 Balance 560 / 560 540 / 1100 60 / 60 Weight last 48 hrs Weight 89.811 kg Weight 87.997 kg Weight 87.09 kg Physical Exam Narrative: General exam is a white male, no distress Neck is supple no lymphadenopathy or thyromegaly Cardiovascular regular rate and rhythm with 2/6 systolic murmur, pacemaker noted right chest Lungs clear to auscultation bilaterally. No wheezes or crackles Abdomen is soft, positive bowel sounds. No obvious organomegaly Extremities no cyanosis clubbing , cap refill brisk. Trace edema is noted. Skin is no rash Neuro no obvious focal deficits. Data : 02/03/22 04:30 02/03/22 04:30 A&P Assessment and plan (1) Heart block AV third degree: Third-degree heart block. Postoperative day #1 status post pacemaker. Appreciate cardiology input. Magnesium, TSH normal Echocardiogram demonstrated preserved EF, mild mitral regurgitation, mild to moderate aortic valve regurgitation Status: Acute (2) Hyperlipidemia: Continue statin Status: Acute (3) Hypertension: Creatinine has increased post procedure, and with hypotension. Discontinue lisinopril Discontinue nitroglycerin ointment Reduce hydralazine Continue Norvasc Status: Acute Plan Acute kidney injury, see notations above. Check BMP at noon History of BPH. Continue Flomax. Full code Lovenox will suffice for DVT prophylaxis We will discuss with cardiology whether he is appropriate for discharge today, after getting him up and around to make sure he is stable and without fall risk as well as close monitoring of blood pressure with change in medication. Repeat BMP at noon. 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
--- NOTE | 2022-02-03 09:44 | P.PN_ITS ---
Subjective Subjective: s/p dual chamber PPM placement by Dr. Hayes yesterday. Medications: Reviewed: Yes Medication Review Details: Current Medications Acetaminophen (Acetaminophen 325 Mg Tablet) 650 mg PO Q6H PRN PRN Reason: MILD PAIN Last Admin: 02/01/22 18:37 Dose: 650 mg Documented by: Amlodipine Besylate (Amlodipine 5 Mg Tablet) 5 mg PO DAILY [facility] Last Admin: 02/03/22 08:41 Dose: 5 mg Documented by: Aspirin (Aspirin 325 Mg Ec Tablet) 325 mg PO DAILY [facility] Last Admin: 02/03/22 08:41 Dose: 325 mg Documented by: Atorvastatin Calcium (Atorvastatin 40 Mg Tablet) 20 mg PO QAM [facility] Last Admin: 02/03/22 05:54 Dose: 20 mg Documented by: Enoxaparin Sodium (Enoxaparin 40 Mg/0.4 Ml Syringe) 40 mg SUBCUT Q24H [facility] Last Admin: 02/02/22 15:14 Dose: Not Given Documented by: Hydralazine HCl (Hydralazine 20 Mg/Ml Inj 1 Ml) 10 mg IVP Q4H PRN PRN Reason: HYPERTENSION Last Admin: 02/01/22 19:42 Dose: 10 mg Documented by: Hydralazine HCl (Hydralazine 25 Mg Tablet) 25 mg PO QID [facility] Last Admin: 02/03/22 08:41 Dose: 25 mg Documented by: Sodium Chloride (Sodium Chloride 0.9%) 1,000 mls @ 75 mls/hr IV .[id number] [facility] Last Admin: 02/03/22 06:19 Dose: 75 mls/hr Documented by: Cefazolin Sodium 2,000 mg/ (Sodium Chloride) 60 mls @ 100 mls/hr IV Q8H [facility] Stop: 02/03/22 12:35 Last Infusion: 02/03/22 07:06 Dose: Infused Documented by: Morphine Sulfate (Morphine 4 Mg/Ml Sdv 1 Ml) 2 mg IVP Q4H PRN PRN Reason: SEVERE PAIN Ondansetron HCl (Ondansetron 2 Mg/Ml Sdv 2 Ml) 4 mg IVP Q6H PRN PRN Reason: NAUSEA AND VOMITING Pantoprazole Sodium (Pantoprazole Dr 40 Mg Tablet) 40 mg PO DAILY [facility] Last Admin: 02/03/22 08:41 Dose: 40 mg Documented by: Tamsulosin HCl (Tamsulosin 0.4 Mg Capsule) 0.4 mg PO BEDTIME LEV Last Admin: 02/02/22 20:30 Dose: 0.4 mg Documented by: Vitals/I&O/Wt Last Vital Signs Temp 98.4 F 02/03/22 04:00 Pulse 88 02/03/22 09:00 Resp 16 02/03/22 09:00 BP 152/69 02/03/22 09:00 Pulse Ox 92 02/03/22 09:00 02/02/22 02/03/22 02/03/22 22:59 06:59 14:59 Intake Total 1310 / 1310 840 / 2150 480 / 480 Output Total 750 / 750 300 / 1050 Balance 560 / 560 540 / 1100 480 / 480 Weight last 48 hrs Weight 198 lb Weight 194 lb Physical Exam Narrative: GENERAL: Averagely built and averagely nourished in no acute distress HEENT: Extraocular movement intact. Pupils equal round reactive to light. No pallor or icterus. NECK: central trachea, No JVD. No carotid bruit. CARDIOVASCULAR SYSTEM: S1-S2 regular. No murmur rubs or gallops. RESPIRATORY SYSTEM: Chest clear to auscultation. No wheezes rhonchi or rubs heard. No use of accessory muscles. Right upper chest PPM dressed; no signficant bruising or hematoma ABDOMEN: Soft, nontender and nondistended. Normal bowel sounds present. EXTREMITIES: No cyanosis, clubbing or edema. No signs of chronic venous insufficiency. LAUNCH OPERATOR: Patient is alert oriented ?3. No focal neurological deficits. Cranial nerves intact. SKIN: Normal turgor and temperature. No breakdown, rash or nail changes noted. PSYCH: Normal insight and judgment. Data : 02/03/22 04:30 02/03/22 04:30 A&P Assessment and plan (1) Heart block AV third degree: EKG with sinus rhythm with third-degree AV block. A-V dissociation. Interve ntricular conduction delay. LVH -Patient does not have many CAD risk factors. No active chest pain -Systolic blood pressure in 200's. -Normal LV function with no regional wall motion abnormality. -intermittent 2:1 AV block and CHB noted -normal TSH -s/p dual-chamber permanent pacemaker placement. Pacemaker interrogation showed normal device function and normal lead impedances. If renal function stabilizes/improves; patient may be discharged with follow-up in 1 week with Saima Briceno. Status: Acute (2) Hypertension: -hold lisinopril. continue amlodipine 5 mg daily. -Continue on hydralazine 25 QID -May increase amlodipine on discharge. Status: Acute (3) Hyperlipidemia: Status: Acute (4) BPH (benign prostatic hyperplasia): Status: Acute Plan EARL: hold lisinopril; fluids and repeat BMP Thank you for allowing me to participate in patient's care. Please feel free to call with questions or concerns. Attestations Medical Necessity Statement*: Potential discharge later today. Coding Level of Care Code Acute It Quality Assurance Analyst for Rere Callaway Diagnoses Heart block AV third degree I44.2 Hypertension I10 Hyperlipidemia E78.5 BPH (benign prostatic hyperplasia) N40.0
[2022-02-03] MEDS: enoxaparin 40 mg/0.4 mL Syringe SUBCUT (12:19)
[2022-02-03 13:03] LABS: Anion Gap 14.9 (5-19); Blood Urea Nitrogen 42 mg/dL (8-23); Calcium 8.5 mg/dL (8.5-10.5); Carbon Dioxide 21 mmol/L (22-29); Chloride 105 mmol/L (98-107); Glucose 140 mg/dL (65-115); Osmolality Calculated 297 mOsm/kg (285-295); Potassium 3.9 mmol/L (3.5-5.1); Sodium 137 mmol/L (136-145)
[2022-02-03] MEDS: tamsulosin 0.4 mg Capsule PO (20:59)
[2022-02-03] MEDS: diphenhydrAMINE 50 mg Capsule PO (20:59)
--- NOTE | 2022-02-03 22:43 | PM.MISC ---
Miscellaneous Note Purpose of Documentation: Post pacemaker follow-up Note: The patient is a pacemaker interrogation was performed today. The function appears to be appropriate. Chest x-ray was reviewed. Lead position is appropriate. May continue on the current measures. He may be started on Keflex 500 mg p.o. every 6 hours for 5 days
[2022-02-04] VITALS (12 sets, daily range): BP systolic 133–172; BP diastolic 66–108; PULSE 64–83; RESP 13–19; TEMP 36.8–37; O2SAT 91–96
[2022-02-04] MEDS: cephALEXin 500 mg Capsule PO ×2 (00:34→08:49)
[2022-02-04] MEDS: morphine 4 mg/mL SDV 1 mL 2 MG IVP (00:50)
[2022-02-04] MEDS: acetaminophen 325 mg Tablet 650 MG PO (00:50)
[2022-02-04 05:15] LABS: Basophils % 0.3 %; Eosinophils # 0.4 10^3/uL (0.0-0.8); Eosinophils % 6.1 %; Hematocrit 42.5 % (42.0-52.0); Hemoglobin 14.1 g/dL (11.7-16.6); Lymphocytes # 1.2 10^3/uL (0.8-4.8); Lymphocytes % 19.5 %; Mean Corpuscular HGB Conc 33.2 g/dL (30.0-36.0); Mean Corpuscular Hemoglobin 29.7 pg (28.0-34.0); Mean Corpuscular Volume 89.5 fl (80-94); Mean Platelet Volume 12.9 fL (7.4-10.4); Monocytes # 0.6 10^3/uL (0.2-0.9); Neutrophils # 3.94 10^3/uL (1.8-7.7); Neutrophils % 63.8 %; Nucleated Red Blood Cells % 0 %; Platelet Count 137 10^3/cmm (130-400); Red Blood Count 4.75 10^6/uL (4.1-5.3); Red Cell Distribution Width 12.9 % (12.1-15.1); White Blood Count 6.2 10^3/uL (4.0-10.0)
[2022-02-04] MEDS: atorvastatin 40 mg Tablet 20 MG PO (05:20)
[2022-02-04] MEDS: sodium chloride 0.9% 1,000 ML 75 ML IV (05:22)
[2022-02-04 05:38] LABS: Anion Gap 13.4 (5-19); Blood Urea Nitrogen 43 mg/dL (8-23); Carbon Dioxide 19 mmol/L (22-29); Chloride 106 mmol/L (98-107); Glucose 105 mg/dL (65-115); Osmolality Calculated 289 mOsm/kg (285-295); Potassium 4.4 mmol/L (3.5-5.1); Sodium 134 mmol/L (136-145)
--- NOTE | 2022-02-04 07:29 | P.DS_ITS ---
Discharge Providers Date of Admission: 02/01/22 11:54 Date of Discharge: February 04, 2022 Attending Provider at Admission: Jerardo Pablo MD Attending Provider at Discharge: Jerardo Pablo MD Primary Care Provider: Ariana Diamond MD Diagnoses at Discharge Discharge Diagnosis (1) Heart block AV third degree: Status: Acute (2) Hypertension: Status: Acute (3) Hyperlipidemia: Status: Acute (4) BPH (benign prostatic hyperplasia): Status: Acute Reason for Visit Reason for Visit: chest pain / sob Hospital Course Hospital Course Jaleel is a 76-year-old white male who presented to the hospital with shortness of breath, extreme fatigue and was found to be in third-degree heart block. There was no obvious cause. Troponins were elevated consistent with type II elevation. Cardiology was consulted, and echocardiogram performed. This demonstrated a preserved ejection fraction, mild mitral regurgitation, mild to moderate aortic valve regurgitation. He was markedly hypertensive and medications were adjusted while in the hospital. On February 02, pacemaker was placed by Dr. Hayes. Patient tolerated this well. The next day he had some acute kidney injury, that required hospitalization until the when this reversed. At this point he will be able to be discharged home. He will follow- up with his primary care provider as well as cardiology. Blood pressure medication was adjusted, and he will discharge on Norvasc 10 mg a day, hydralazine 25 mg 3 times daily. He will keep a blood pressure log, and medication can be adjusted further as an outpatient. 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 echo complete* [id number] Routine Ultrasound 02/01/22 11:04 Completed Radiology Impressions Chest X-Ray 02/03/22 06:00 IMPRESSION: 1. Status post RIGHT subclavian dual lead pacer insertion. No complications are apparent. 2. Mild fullness at the hilar regions is probably due to supine position of the patient. These findings were not present on 02/01/2022. Laboratory Results WBC 6.2 10^3/uL (4.0-10.0) 02/04/22 04:38 RBC 4.75 10^6/uL (4.1-5.3) 02/04/22 04:38 Hgb 14.1 g/dL (11.7-16.6) 02/04/22 04:38 Hct 42.5 % (42.0-52.0) 02/04/22 04:38 MCV 89.5 fl (80-94) 02/04/22 04:38 MCH 29.7 pg (28.0-34.0) 02/04/22 04:38 MCHC 33.2 g/dL (30.0-36.0) 02/04/22 04:38 RDW 12.9 % (12.1-15.1) 02/04/22 04:38 Plt Count 137 10^3/cmm (130-400) 02/04/22 04:38 MPV 12.9 fL (7.4-10.4) H 02/04/22 04:38 Neut % (Auto) 63.8 % 02/04/22 04:38 Lymph % (Auto) 19.5 % 02/04/22 04:38 [place] % (Auto) 10.0 % 02/04/22 04:38 Eos % (Auto) 6.1 % 02/04/22 04:38 Baso % (Auto) 0.3 % 02/04/22 04:38 Neut # (Auto) 3.94 10^3/uL (1.8-7.7) 02/04/22 04:38 Lymph # (Auto) 1.2 10^3/uL (0.8-4.8) 02/04/22 04:38 [place] # (Auto) 0.6 10^3/uL (0.2-0.9) 02/04/22 04:38 Eos # (Auto) 0.4 10^3/uL (0.0-0.8) 02/04/22 04:38 Baso # (Auto) 0.0 10^3/uL (0.0-0.1) 02/04/22 04:38 Nucleated RBC % (auto) 0 % 02/04/22 04:38 Nucleated RBCs # 0.0 /100WBC 02/04/22 04:38 PT 14.30 SECONDS (12.1-14.9) 02/02/22 06:21 INR 1.08 (0.8-1.2) 02/02/22 06:21 APTT 32.3 SECONDS (23.9-36.7) 02/02/22 06:21 Sodium 134 mmol/L (136-145) L 02/04/22 04:38 Potassium 4.4 mmol/L (3.5-5.1) 02/04/22 04:38 Chloride 106 mmol/L (98-107) 02/04/22 04:38 Carbon Dioxide 19 mmol/L (22-29) L 02/04/22 04:38 Anion Gap 13.4 (5-19) 02/04/22 04:38 BUN 43 mg/dL (8-23) H 02/04/22 04:38 Creatinine 1.2 mg/dL (0.7-1.2) 02/04/22 04:38 GFR Calculation Not Reportable 02/04/22 04:38 Glucose 105 mg/dL (65-115) 02/04/22 04:38 Calculated Osmolality 289 mOsm/kg (285-295) 02/04/22 04:38 Calcium 8.0 mg/dL (8.5-10.5) L 02/04/22 04:38 Magnesium 2.0 mg/dL (1.7-2.3) 02/02/22 05:25 Total Bilirubin 1.0 mg/dL (0.15-1.2) 02/02/22 05:25 AST 12 U/L (0-40) 02/02/22 05:25 ALT 14 U/L (0-41) 02/02/22 05:25 Alkaline Phosphatase 67 IU/L (40-130) 02/02/22 05:25 Troponin T Baseline 42 ng/L (0-15) H 02/01/22 09:29 Troponin T 120 Minute 21.34 ng/L (0-15) H 02/01/22 12:03 Delta Troponin T -20.66 ABS# (0-10) L 02/01/22 12:03 Troponin T Hi Sens 6Hr 38.49 ng/L (0-15) H 02/01/22 15:06 Troponin T Hi Sens 6Hr Delta -3.51 ng/L (0-12) L 02/01/22 15:06 Total Protein 5.6 g/dL (6.6-8.7) L 02/02/22 05:25 Albumin 3.2 g/dL (3.5-5.2) L 02/02/22 05:25 Globulin 2.4 g/dL (1.3-4.6) 02/02/22 05:25 Triglycerides 108 mg/dL (0-150) 02/02/22 05:25 Cholesterol 125 mg/dL (0-200) 02/02/22 05:25 LDL Cholesterol, Calc 69 mg/dL (50-129) 02/02/22 05:25 HDL Cholesterol 34 mg/dL (60-100) L 02/02/22 05:25 LDL/HDL Ratio 2.03 RATIO (0.00-3.22) 02/02/22 05:25 Cholesterol/HDL Ratio 3.68 mg/dL (1.0-5.00) 02/02/22 05:25 TSH 3.41 uIU/mL (0.27-4.20) 02/01/22 09:29 Vitals Last Vital Signs Temp 98.2 F 02/04/22 04:00 Pulse 72 02/04/22 06:00 Resp 15 02/04/22 06:00 BP 170/85 02/04/22 06:00 Pulse Ox 93 02/04/22 06:00 Discharge Plan Discharge Patient Disposition: Home Condition: Stable Prescriptions: New Percocet 5-325 mg tablet 1 tab PO TID PRN (Reason: pain) Qty: 15 0RF hydralazine 25 mg Tablet 25 mg PO TID Qty: 90 0RF Rx Instructions: Hold for blood pressure less than 130/80 mm Hg. cephalexin 500 mg capsule 500 mg PO Q8H 4 Days Qty: 12 0RF amlodipine 5 mg Tablet 10 mg PO DAILY Qty: 30 0RF Continued atorvastatin 20 mg tablet 20 mg PO QAM 0RF Tylenol Ex Str Rapid Release 500 mg Tablet 500 mg PO BEDTIME 0RF tamsulosin 0.4 mg capsule 0.4 mg PO BEDTIME 0RF lidocaine 5 % Adhesive Patch,Medicated 1 patch TOPICAL DAILY PRN (Reason: Pain) 0RF Rx Instructions: leave on most painful area for up to 12 hrs Voltaren Arthritis Pain 1 % Gel 2 g TOPICAL BID PRN (Reason: Pain) 0RF Rx Instructions: apply to single elbow, wrist or hand; for hand includes palm/fingers/back of hand Glucosamine Chondroitin 550-30-1 mg Capsule 1 cap PO BID 0RF Discontinued lisinopril 10 mg tablet 10 mg PO QAM 0RF Discharge Orders: Discharge Order (Routine); Ordered 02/04/22 Ordered By: Jerardo Pablo Referrals: [facility] [Other] (for new pacemaker follow up at [facility] for date of ,february 26, 2022 time of 11:15 am, [employer] services this device pacemaker ) Ariana Diamond MD [Primary Care Provider] - 4-7 days () Tammi Toro FNP [Nurse Practitioner] - 7-10 days (Post PPM implant . THIS APPOINTMENT HAS BEEN SCHEDULED FOR FOLLOW UP AT OFFICE WILL NEED WOUND CHECK,AND LAB TEST (BMP) POST PACEMAKER FOLLOW UP , TAMMI TORO APN NURSE AT [facility] , FOLLOWING DATE OF FEBRUARY 11, AT AM:) Gina Riddle MD [Physician] - 2 months (THIS APPOINTMENT HAS BEEN SCHEDULED , MARCH 29, AT 11:30 AM ) Discharge Diet: Cardiac Discharge Activity: Limit activity as instructed Patient Instructions: Pacemaker (DC), Opioid Safety, Post Pacemaker - Freddy Activity Restrictions/Additional Instructions: Take all medicine as prescribed. Keep log of blood pressures, and bring them to your first appointment. Discharge Attestations Time Spent in Discharge Care*: greater than 30 min Quality Metrics Clinical Quality Measures [ No reported AMI, CVA or VTE this stay] Coding Level of Care Code Acute Chg FW DC note Diagnoses Heart block AV third degree I44.2 Hypertension I10 Hyperlipidemia E78.5 BPH (benign prostatic hyperplasia) N40.0
--- NOTE | 2022-02-04 08:39 | PC.SOCIAL ---
IMM Update pg 2 of IMM updated and reviewed w/ patient. Copy provided and Copy placed in chart.
[2022-02-04] MEDS: hyDRALAzine 25 mg Tablet PO (08:49)
[2022-02-04] MEDS: amlodipine 10 mg Tablet PO (08:49)
[2022-02-04] MEDS: aspirin 325 mg EC Tablet PO (08:49)
[2022-02-04] MEDS: multivitamin therapeutic Tablet 1 TAB PO (08:50)
[2022-02-04] MEDS: pantoprazole DR 40 mg Tablet PO (08:50)
--- NOTE | 2022-02-04 09:21 | PC.NURSE ---
Discharge instructions given to patient, verbal and written understanding. IV removed. Went over pacemaker/arm precautions again. Patient request prescriptions be sent to [facility]. This was done.
--- NOTE | 2022-02-04 09:51 | PC.NURSE ---
Patient wheeled to private vehicle by CATIE Perdomo., accompanied by patient's son. Belongings with patient.
== END 2022-02-04 09:53 | disposition home or self-care (01) | DRG 243 ==
LOC: ER 10:14 → ICU 11:27
PROVIDERS: Internal Medicine Cardiovascular Disease; Admitting Provider Internal Medicine; Emergency Provider Family Medicine; PCP Family Medicine; Visit Provider Internal Medicine
PROC: 0JH606Z Insertion of Pacemaker, Dual Chamber into Chest Subcutaneous Tissue and Fascia, Open Approach (ICD-10-PCS; principal; 2022-02-02 16:00)
DX: I44.2 Atrioventricular block, complete (principal); N17.9 Acute kidney failure, unspecified; I10 Essential (primary) hypertension; E78.5 Hyperlipidemia, unspecified; N40.0 Benign prostatic hyperplasia without lower urinary tract symptoms
CPT/HCPCS: 33208; 36415; 71045; 80048; 80053; 80061; 83735; 84443; 84484; 85025; 85610; 85730; 93005; 93306; 96372; 96374; 97165; 99285; C1769; C1779; C1786; C1894; J0360; J0461; J0690; J1650; J1940; J2250; J2270; J3010; J7030; J7050; Q0163; Q9967

== ENCOUNTER → 2022-02-11 10:39 | Outpatient (BNVA) | payer OTHER, SELFPAY | PROVIDERS: PCP Family Medicine; Visit Provider Nurse Practitioner Family | DX: I11.0 Hypertensive heart disease with heart failure (principal); I50.9 Heart failure, unspecified; Z95.0 Presence of cardiac pacemaker; R60.0 Localized edema; E78.5 Hyperlipidemia, unspecified | CPT/HCPCS: 36415; 80048; 83880; 99214 ==

== ENCOUNTER → 2022-02-26 11:05 | Outpatient (BNVA) | payer OTHER, SELFPAY | PROVIDERS: PCP Family Medicine; Visit Provider Internal Medicine Cardiovascular Disease | DX: Z45.010 Encounter for checking and testing of cardiac pacemaker pulse generator [battery] (principal) | CPT/HCPCS: 93280 ==

== ENCOUNTER → 2022-03-29 11:28 | Outpatient (BNVA) | payer OTHER, SELFPAY | PROVIDERS: PCP Family Medicine; Visit Provider Internal Medicine Cardiovascular Disease | DX: I10 Essential (primary) hypertension (principal); Z95.0 Presence of cardiac pacemaker; E78.5 Hyperlipidemia, unspecified; N40.0 Benign prostatic hyperplasia without lower urinary tract symptoms | CPT/HCPCS: 99214 ==

== ENCOUNTER 2022-04-16 08:17 | Emergency (ER) | payer OTHER, MEDICARE, SELFPAY ==
[2022-04-16 08:33] VITALS: BP 147/80; PULSE 81; RESP 20; TEMP 37.4; O2SAT 93
--- NOTE | 2022-04-16 08:37 | ECG_ITS ---
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 Measurements Intervals [place] Rate: 90 P: 37 MD: 187 QRS: -79 QRSD: 164 T: 100 QT: 427 QTc: 523 Interpretive Statements A sense V paced rhythm ELECTRONIC VENTRICULAR PACEMAKER ABNORMAL RHYTHM ECG Compared to ECG 02/03/2022 06:19:05 AV dual-paced complex(es) or rhythm no longer present Electronically Signed On 04-16-2022 22:52:48 CDT by Gina Riddle M.D. [email or web address]
--- NOTE | 2022-04-16 08:37 | XR_ITS ---
WS: [id number] Exam: XR chest 1V portable [id number] Date/Time of Exam: 04/16/2022 8:42 AM Reason For Exam: chest pain, cough Comparison 02/03/2022. The lungs are clear and fully expanded. Heart size top limits normal. No pleural effusions. The media stinum is normal in contour. A permanent cardiac pacer superimposes the right chest. Bony structures are intact. XR/XR chest 1V portable [id number] IMPRESSION: 1. No acute cardiopulmonary finding.
[2022-04-16 08:39] VITALS: BP 147/80; PULSE 87; RESP 15; O2SAT 93
--- NOTE | 2022-04-16 08:41 | ED_ITS ---
HPI - Chest Pain General: Chief Complaint: Chest Pain Stated Complaint: Cough, chest and back pain Time Seen by Provider: 04/16/22 08:20 History of Present Illness: Mr. Latham is a 76-year-old gentleman with history of hypertension, hyperlipidemia, pacemaker who presents to the emergency department due to chest discomfort associated with infectious symptoms. Onset of symptoms was 2 days ago initially with nasal congestion and drainage followed by cough with chest discomfort radiating to the back and abdomen that is worse with cough. This is aching in quality and mild to moderate in intensity. Mild associated shortness of breath. No other typical cardiac features. No other specific changes in health, exacerbating, or alleviating factors identified. Onset (ago): day(s) Timing of current episode: constant Pain radiation: back Severity: moderate Quality: aching Associated symptoms: Reports fever(s) and other Review of Systems General: Reports: 10 or more systems reviewed and unremarkable except in HPI and below Const: Reports: fever(s) PFS ED PFSH: Medical History BPH (benign prostatic hyperplasia) Heart block AV third degree Hyperlipidemia Hypertension Pacemaker Family History Other Cancer Social History Smoking and tobacco status: never smoked Alcohol intake: never Physical Exam Const: COMMON NORMALS: alert GENERAL APPEARANCE: cooperative and well developed HENMT: COMMON NORMALS: normocephalic and atraumatic HEAD & SCALP: normocephalic and atraumatic THROAT: posterior oropharynx normal Eye: COMMON NORMALS: conjunctivae normal CONJUNCTIVA: Yes conjunctivae normal SCLERA: sclerae normal Neck/C-Spine: COMMON NORMALS: supple GENERAL: Yes trachea midline Resp: COMMON NORMALS: normal respiratory effort and clear to auscultation bilaterally EFFORT & INSPECTION: Yes able to speak in complete sentences AUSCULTATION: clear to auscultation bilaterally Cardio: COMMON NORMALS: regular rate and regular rhythm RATE: regular rate RHYTHM: regular rhythm GI: COMMON NORMALS: Soft to palpation PALPATION: Yes Soft to palpation and No Tenderness to palpation present (GI) PERCUSSION: normal to percussion Extremity: GENERAL: Yes normal exam except as noted and No edema Neuro: COMMON NORMALS: moves all extremities SENSORIUM/ORIENTATION: Yes alert and No Orientation impaired Psych: COMMON NORMALS: mental status grossly normal and Normal thought process present THOUGHT PROCESS: Normal thought process present Course ED course: - Patient was seen and evaluated by me at bedside - Patient placed on cardiac monitors, IV access obtained - Initial evaluation notable for exam as above - Labs and xrays personally interpreted by me. EKG showing ventricularly paced rhythm. -Fluids and aspirin given - Labs notable for no leukocytosis, normal hemoglobin. Mild thrombocytopenia, patient appears to have low end of normal typically. No electrolyte derangement. Negative delta troponin. BNP only mildly elevated. Urinalysis without evidence of urinary tract infection. COVID-positive. - Imaging notable for no lobar consolidation or pneumothorax. - Upon serial reexamination after treatment the patient was mildly improved. Steroid given. - Based on patient history, evaluation, and testing as interpreted the most likely cause of the patient's condition is COVID-19 without hypoxemia currently or significant vital sign derangement - The results of ED evaluation were discussed with the patient including po tential treatment options for COVID. I discussed prescriptions and/or symptomatic cares (if applicable) including appropriate and responsible use, followup plan, and return precautions. The patient verbalized understanding and felt safe for discharge. - Patient discharged in satisfactory condition. Note: Click bubbles or prepopulated askew in note writing are used for assistance with data collection and billing and are inherently more limited than narrative and other text portions of this note. Please use narrative for additional clinical history and defer to narrative/free test for any case of contradictory information. If information appears in only free text or click bubble it s hould be considered present or absent as reported. Please contact note telegraphic typewriter mechanic for clarifications of clinical information or contradictory information. MDM is a brief summary, contradictory or erroneous seeming information should be clarified and full note should be reviewed. Vital Signs: Vital signs: Vital Signs Temperature 99.4 F 04/16/22 08:33 Pulse Rate 67 04/16/22 12:16 Respiratory Rate 20 H 04/16/22 12:16 Blood Pressure 170/83 04/16/22 12:16 Pulse Oximetry 94 04/16/22 12:16 MDM - Chest Pain Medical Decision Making 76-year-old gentleman presenting with chest discomfort found to have COVID-19. No new oxygen requirement. Nontoxic in appearance. Symptoms improved with eating. After discussion discharged with Paxlovid and steroids. Strict return precautions given. Medical Records I reviewed the patient's medical records. Lab Data I reviewed the patient's lab results. : 04/16/22 08:39 04/16/22 08:39 Radiology Impressions Chest X-Ray 04/16/22 08:37 IMPRESSION: 1. No acute cardiopulmonary finding. Laboratory Results WBC 4.8 10^3/uL (4.0-10.0) 04/16/22 08:39 RBC 4.78 10^6/uL (4.1-5.3) 04/16/22 08:39 Hgb 14.2 g/dL (11.7-16.6) 04/16/22 08:39 Hct 40.5 % (42.0-52.0) L 04/16/22 08:39 MCV 84.7 fl (80-94) 04/16/22 08:39 MCH 29.7 pg (28.0-34.0) 04/16/22 08:39 MCHC 35.1 g/dL (30.0-36.0) 04/16/22 08:39 RDW 12.4 % (12.1-15.1) 04/16/22 08:39 Plt Count 124 10^3/cmm (130-400) L 04/16/22 08:39 MPV 12.9 fL (7.4-10.4) H 04/16/22 08:39 Neut % (Auto) 75.5 % 04/16/22 08:39 Lymph % (Auto) 12.3 % 04/16/22 08:39 [place] % (Auto) 11.0 % 04/16/22 08:39 Eos % (Auto) 0.4 % 04/16/22 08:39 Baso % (Auto) 0.4 % 04/16/22 08:39 Neut # (Auto) 3.63 10^3/uL (1.8-7.7) 04/16/22 08:39 Lymph # (Auto) 0.6 10^3/uL (0.8-4.8) L 04/16/22 08:39 [place] # (Auto) 0.5 10^3/uL (0.2-0.9) 04/16/22 08:39 Eos # (Auto) 0.0 10^3/uL (0.0-0.8) 04/16/22 08:39 Baso # (Auto) 0.0 10^3/uL (0.0-0.1) 04/16/22 08:39 Nucleated RBC % (auto) 0 % 04/16/22 08:39 Nucleated RBCs # 0.0 /100WBC 04/16/22 08:39 Sodium 137 mmol/L (136-145) 04/16/22 08:39 Potassium 4.3 mmol/L (3.5-5.1) 04/16/22 08:39 Chloride 103 mmol/L (98-107) 04/16/22 08:39 Carbon Dioxide 21 mmol/L (22-29) L 04/16/22 08:39 Anion Gap 17.3 (5-19) 04/16/22 08:39 BUN 21 mg/dL (8-23) 04/16/22 08:39 Creatinine 1.0 mg/dL (0.7-1.2) 04/16/22 08:39 GFR Calculation Not Reportable 04/16/22 08:39 Glucose 93 mg/dL (65-115) 04/16/22 08:39 Calculated Osmolality 287 mOsm/kg (285-295) 04/16/22 08:39 Calcium 8.1 mg/dL (8.5-10.5) L 04/16/22 08:39 Total Bilirubin 0.7 mg/dL (0.15-1.2) 04/16/22 08:39 AST 17 U/L (0-40) 04/16/22 08:39 ALT 14 U/L (0-41) 04/16/22 08:39 Alkaline Phosphatase 80 IU/L (40-130) 04/16/22 08:39 Troponin T Baseline 36 ng/L (0-15) H 04/16/22 08:39 Troponin T 120 Minute 33.81 ng/L (0-15) H 04/16/22 10:33 Delta Troponin T -2.19 ABS# (0-10) L 04/16/22 10:33 NT-Pro-B Natriuret Pep 1339 pg/mL (0-125) H 04/16/22 08:39 Total Protein 6.5 g/dL (6.6-8.7) L 04/16/22 08:39 Albumin 4.0 g/dL (3.5-5.2) 04/16/22 08:39 Globulin 2.5 g/dL (1.3-4.6) 04/16/22 08:39 Lipase 24 U/L (13-60) 04/16/22 08:39 Urine Color Yellow (Yellow) 04/16/22 09:00 Urine Appearance Clear (CLEAR) 04/16/22 09:00 Urine pH 5 (5-7) 04/16/22 09:00 Ur Specific [place] 1.020 (1.005-1.030) 04/16/22 09:00 Urine Protein Neg (Negative) 04/16/22 09:00 Urine Glucose (UA) Norm (Normal) 04/16/22 09:00 Urine Ketones Negative (Negative) 04/16/22 09:00 Urine Blood Neg (Negative) 04/16/22 09:00 Urine Nitrate Negative (Negative) 04/16/22 09:00 Urine Bilirubin 1+ (Negative) H 04/16/22 09:00 Urine Urobilinogen 1 mg/dL (Negative) H 04/16/22 09:00 Ur Leukocyte Esterase Negative (Negative) 04/16/22 09:00 Coronavirus 229E (PCR) Not detected (NOT DETECT) 04/16/22 08:47 SARS-CoV-2 (PCR) Detected (NOT DETECT) A 04/16/22 08:47 Discharge Plan Discharge Patient Disposition: Home Clinical Impression: COVID-19, Thrombocytopenia Condition: Stable Prescriptions: New Decadron 6 mg tablet 6 mg PO DAILY Qty: 10 0RF No Action amlodipine 5 mg tablet 5 mg PO DAILY PRN (Reason: hypertension) Qty: 30 0RF Rx Instructions: Take if BP greater than 150/90. acetaminophen 500 mg Tablet 500 mg PO BEDTIME 0RF tamsulosin 0.4 mg capsule 0.4 mg PO BEDTIME 0RF lidocaine 5 % Adhesive Patch,Medicated 1 patch TOPICAL DAILY PRN (Reason: Pain) 0RF Rx Instructions: leave on most painful area for up to 12 hrs diclofenac sodium [Voltaren Arthritis Pain] 1 % Gel 2 g TOPICAL BID PRN (Reason: Pain) 0RF Rx Instructions: apply to single elbow, wrist or hand; for hand includes palm/fingers/back of hand Glucosamine Chondroitin 550-30-1 mg Capsule 1 cap PO BID 0RF hydralazine 25 mg Tablet 25 mg PO TID Qty: 90 0RF Rx Instructions: Hold for blood pressure less than 130/80 mm Hg. atorvastatin 20 mg tablet 10 mg PO QAM 0RF furosemide 40 mg tablet 20 mg PO DAILY 0RF Coricidin HBP Cough and Cold 4-30 mg Tablet 1 tab PO .ONCE 0RF Vitamin D3 1 cap PO QAM 0RF valsartan 160 mg tablet 160 mg PO QAM 0RF Klor-Con M10 10 mEq tablet,ER particles/crystals 5 meq PO DAILY 0RF Rx Instructions: take with furosemide Discharge Orders: Discharge ED (Routine); Ordered 04/16/22 Ordered By: Paolo Espana Referrals: Ariana Diamond MD [Primary Care Provider] - Discharge Diet: Usual diet Discharge Activity: Increase activity as tolerated Patient Instructions: Dexamethasone (By mouth), Nirmatrelvir/Ritonavir (By mouth) (Paxlovid), COVID-19 (Coronavirus Disease 2019) (ED) Activity Restrictions/Additional Instructions: Thank you for visiting the emergency department. You were seen and evaluated for generalized symptoms. You are found to have COVID-19 which likely explain symptoms. You will be treated with paxlovid of it and steroids. Paxlovid, as discussed, it is authorized under emergency use. Please follow-up with your primary care provider. Please return to the emergency department for worsening symptoms, oxygen saturation at rest less than 88%, inability tolerate oral intake, or anything else that you are concerned about a feel needs emergency department evaluation. Coding Level of Care Code ED Manager [employer] Exam Comprehensive
[2022-04-16] MEDS: sodium chloride 0.9% 1,000 ML 999 ML IV (08:46)
[2022-04-16] MEDS: aspirin 81 mg Chew Tablet 324 MG PO (08:46)
--- NOTE | 2022-04-16 09:03 | PC.NURSE ---
PT placed on continuous NIBP, SpO2, and CM
[2022-04-16 09:09] LABS: Add Urine Microscopic? NO; Charge for UA Resulting for Rev
[2022-04-16 09:13] LABS: Basophils % 0.4 %; Eosinophils % 0.4 %; Hematocrit 40.5 % (42.0-52.0); Hemoglobin 14.2 g/dL (11.7-16.6); Lymphocytes # 0.6 10^3/uL (0.8-4.8); Lymphocytes % 12.3 %; Mean Corpuscular HGB Conc 35.1 g/dL (30.0-36.0); Mean Corpuscular Hemoglobin 29.7 pg (28.0-34.0); Mean Corpuscular Volume 84.7 fl (80-94); Mean Platelet Volume 12.9 fL (7.4-10.4); Monocytes # 0.5 10^3/uL (0.2-0.9); Neutrophils # 3.63 10^3/uL (1.8-7.7); Neutrophils % 75.5 %; Nucleated Red Blood Cells % 0 %; Platelet Count 124 10^3/cmm (130-400); Red Blood Count 4.78 10^6/uL (4.1-5.3); Red Cell Distribution Width 12.4 % (12.1-15.1); White Blood Count 4.8 10^3/uL (4.0-10.0)
[2022-04-16 09:16] LABS: Glucose Urine UA Norm (Normal); Protein Urine Neg (Negative); Urine Appearance Clear (CLEAR); Urine Color Yellow (Yellow); pH Urine 5 (5-7)
[2022-04-16 09:17] LABS: Bilirubin Urine 1+ (Negative); Blood Urine Neg (Negative); Ketones Urine Negative (Negative); Leukocyte Esterase Urine Negative (Negative); Nitrate Urine Negative (Negative); Urobilinogen Urine 1 mg/dL (Negative)
[2022-04-16 09:22] LABS: Troponin(5th) Baseline 36 ng/L (0-15)
[2022-04-16 09:29] LABS: Alanine Aminotransferase 14 U/L (0-41); Alkaline Phosphatase 80 IU/L (40-130); Anion Gap 17.3 (5-19); Aspartate Amino Transferase 17 U/L (0-40); Blood Urea Nitrogen 21 mg/dL (8-23); Calcium 8.1 mg/dL (8.5-10.5); Carbon Dioxide 21 mmol/L (22-29); Chloride 103 mmol/L (98-107); Globulin 2.5 g/dL (1.3-4.6); Glucose 93 mg/dL (65-115); Lipase 24 U/L (13-60); NT Pro B Type Natriuretic Pept 1339 pg/mL (0-125); Osmolality Calculated 287 mOsm/kg (285-295); Potassium 4.3 mmol/L (3.5-5.1); Sodium 137 mmol/L (136-145); Total Bilirubin 0.7 mg/dL (0.15-1.2); Total Protein 6.5 g/dL (6.6-8.7)
[2022-04-16 09:30] VITALS: BP 153/85; PULSE 73; RESP 20; O2SAT 93
[2022-04-16 10:09] VITALS: BP 143/78; PULSE 71; RESP 21; O2SAT 92
[2022-04-16 10:45] LABS: Adenovirus Not Detected (NOT DETECT); Chlamydia Pneumoniae Not Detected (NOT DETECT); Coronavirus 229E,HKU1,NL63,OC4 Not Detected (NOT DETECT); Human Metapneumovirus Not Detected (NOT DETECT); Human Rhinovirus/Enterovirus Not Detected (NOT DETECT); Influenza A Not Detected (NOT DETECT); Influenza A H1 Not Detected (NOT DETECT); Influenza A H1-2009 Not Detected (NOT DETECT); Influenza A H3 Not Detected (NOT DETECT); Influenza B Not Detected (NOT DETECT); Mycoplasma Pneumoniae Not Detected (NOT DETECT); Parainfluenza Virus Type 1 Not Detected (NOT DETECT); Parainfluenza Virus Type 2 Not Detected (NOT DETECT); Parainfluenza Virus Type 3 Not Detected (NOT DETECT); Parainfluenza Virus Type 4 Not Detected (NOT DETECT); Respiratory Syncytial Virus A Not Detected (NOT DETECT); Respiratory Syncytial Virus B Not Detected (NOT DETECT); SARS-COV-2 Detected (NOT DETECT)
[2022-04-16 10:55] LABS: Troponin 5 2HR 33.81 ng/L (0-15); Troponin 5 2HR Delta -2.19 ABS# (0-10)
--- NOTE | 2022-04-16 11:42 | PC.NURSE ---
Went to patients room to do 2nd EKG, Dr. Espana was in the room speaking with the patient, Dr. Espana instructed me that the 2nd EKG was not needed and that the patient was positive for COVID.
[2022-04-16 12:00] VITALS: PULSE 72; RESP 20; O2SAT 93
[2022-04-16] MEDS: dexamethasone 10 mg/mL INJ 6 MG IVP (12:02)
[2022-04-16 12:16] VITALS: BP 170/83; PULSE 67; RESP 20; O2SAT 94
== END 2022-04-16 12:19 | disposition home or self-care (01) ==
PROVIDERS: Emergency Provider Emergency Medicine; PCP Family Medicine
DX: U07.1 COVID-19 (principal); D69.6 Thrombocytopenia, unspecified; I10 Essential (primary) hypertension; Z95.0 Presence of cardiac pacemaker
CPT/HCPCS: 36415; 71045; 80053; 81003; 83690; 83880; 84484; 85025; 87635; 93005; 96361; 96374; 99285; J1100; J7030

== ENCOUNTER → 2022-04-22 09:13 | Outpatient (BNVA) | payer OTHER, SELFPAY | PROVIDERS: PCP Family Medicine; Visit Provider Internal Medicine Cardiovascular Disease | DX: Z45.010 Encounter for checking and testing of cardiac pacemaker pulse generator [battery] (principal) | CPT/HCPCS: 93280 ==

== ENCOUNTER → 2022-04-27 09:19 | Outpatient (BNVA) | payer OTHER, SELFPAY | PROVIDERS: PCP Family Medicine; Visit Provider Nurse Practitioner Family | DX: I10 Essential (primary) hypertension (principal); Z95.0 Presence of cardiac pacemaker | CPT/HCPCS: 99213; 99214 ==

== ENCOUNTER → 2022-06-30 09:16 | Outpatient (BNVA) | payer OTHER, SELFPAY | PROVIDERS: PCP Family Medicine; Visit Provider Nurse Practitioner Family | DX: I10 Essential (primary) hypertension (principal) | CPT/HCPCS: 99213 ==

== ENCOUNTER → 2022-09-29 09:14 | Outpatient (BNVA) | payer OTHER, SELFPAY | PROVIDERS: PCP Family Medicine; Visit Provider Nurse Practitioner Family | DX: I10 Essential (primary) hypertension (principal); Z95.0 Presence of cardiac pacemaker | CPT/HCPCS: 99214 ==

== ENCOUNTER → 2023-03-25 10:45 | Outpatient (BNVA) | payer OTHER, SELFPAY | PROVIDERS: PCP Family Medicine; Visit Provider Internal Medicine Cardiovascular Disease | DX: Z95.0 Presence of cardiac pacemaker (principal); I10 Essential (primary) hypertension; E78.5 Hyperlipidemia, unspecified | CPT/HCPCS: 99214 ==

== ENCOUNTER → 2023-09-23 11:10 | Outpatient (BNVA) | payer OTHER, SELFPAY | PROVIDERS: PCP Family Medicine; Visit Provider Internal Medicine Cardiovascular Disease | DX: I10 Essential (primary) hypertension (principal); Z95.0 Presence of cardiac pacemaker | CPT/HCPCS: 99214 ==

== ENCOUNTER → 2023-09-28 16:40 | Outpatient (BNVA) | payer OTHER, SELFPAY | PROVIDERS: PCP Family Medicine; Visit Provider Internal Medicine Cardiovascular Disease | DX: Z45.010 Encounter for checking and testing of cardiac pacemaker pulse generator [battery] (principal) | CPT/HCPCS: 93294; 93296 ==

== ENCOUNTER 2023-12-10 12:31 | Emergency (ER) | payer OTHER, SELFPAY ==
[2023-12-10 13:05] VITALS: BP 144/76; PULSE 81; RESP 16; TEMP 36.8; O2SAT 95; BMI 29.0
--- NOTE | 2023-12-10 13:21 | CTR_ITS ---
PROCEDURE INFORMATION: Exam: CT Head Without Contrast Exam date and time: 12/10/2023 1:54 PM Age: 78 years old Clinical indication: Injury or trauma; Fall; Blunt trauma (contusions or hematomas) TECHNIQUE: Imaging protocol: Computed tomography of the head without contrast. Radiation optimization: All CT scans at this facility use at least one of these dose optimization techniques: automated exposure control; mA and/or kV adjustment per patient size (includes targeted exams where dose is matched to clinical indication); or iterative reconstruction. COMPARISON: CT cervical spin wo con* [id number] 12/10/2023 1:54 PM RADIATION DOSE METRICS: Total DLP (mGy-cm): 901.31 FINDINGS: Brain: Normal. No hemorrhage. Unremarkable white matter. No mass effect. Cerebral ventricles: No ventriculomegaly. Paranasal sinuses: There is mild mucosal disease of the left maxillary sinus. Mastoid air cells: Visualized mastoid air cells are well aerated. Bones/joints: Unremarkable. No acute fracture. Soft tissues: Unremarkable. CT/CT head wo con* [id number] IMPRESSION: No intracranial posttraumatic changes.
--- NOTE | 2023-12-10 13:21 | CTR_ITS ---
PROCEDURE INFORMATION: Exam: CT Cervical Spine Without Contrast Exam date and time: 12/10/2023 1:54 PM Age: 78 years old Clinical indication: Injury or trauma; Fall; Blunt trauma TECHNIQUE: Imaging protocol: Computed tomography of the cervical spine without contrast. Radiation optimization: All CT scans at this facility use at least one of these dose optimization techniques: automated exposure control; mA and/or kV adjustment per patient size (includes targeted exams where dose is matched to clinical indication); or iterative reconstruction. COMPARISON: CT neck w con* [id number] 04/14/2021 2:43 PM RADIATION DOSE METRICS: Total DLP (mGy-cm): 606.4 FINDINGS: Bones/joints: There is [id number] degenerative disease of the cervical spine, most prominent at C5-C6 with disc space narrowing, anterior and posterior osteophytes. There is straightening of the cervical lordosis. No compression deformity of the vertebral bodies. Lungs: There are bilateral apical fibrotic changes. Thyroid: There is a hypodense right thyroid nodule measuring 1.2 cm and a 4 mm hypodense left thyroid nodule. Vasculature: There are bilateral carotid calcifications. Mild dilatation of the ascending aorta. Soft tissues: Unremarkable. CT/CT cervical spin wo con* [id number] IMPRESSION: No posttraumatic changes in the cervical spine. COMMENTS: Consistent with the [place] [employer]'s Incidental Findings Committee white paper (J Am Catalina Radiol 2015): In patients aged 35 years and older with an incidental thyroid nodule equal to or greater than 1.[address], MRI or extrathyroidal US, further evaluation with dedicated thyroid US is recommended for patients with normal life expectancy and without comorbidities. For smaller nodules without suspicious features, no further evaluation or follow up is recommended.
--- NOTE | 2023-12-10 13:21 | XRR_ITS ---
PROCEDURE INFORMATION: Exam: XR Left Hip Exam date and time: 12/10/2023 2:48 PM Age: 78 years old Clinical indication: Injury or trauma; Fall; Blunt trauma (contusions or hematomas); Left; Hip TECHNIQUE: Imaging protocol: Radiologic exam of the left hip. Views: 2 or 3 views hip with pelvis when performed. COMPARISON: No relevant prior studies available. FINDINGS: Bones/joints: Mild degenerative disease of the left hip and left sacroiliac joints. Soft tissues: Unremarkable. XR/XR hip LT 2-3V wo/w pel* [id number] IMPRESSION: No acute fracture or dislocation.
--- NOTE | 2023-12-10 13:22 | XRR_ITS ---
PROCEDURE INFORMATION: Exam: XR Chest Exam date and time: 12/10/2023 2:38 PM Age: 78 years old Clinical indication: Injury or trauma; Fall; Blunt trauma (contusions or hematomas); Additional info: Dyspnea/cough TECHNIQUE: Imaging protocol: Radiologic exam of the chest. Views: 1 view. COMPARISON: CR XR chest 1V portable [id number] 04/16/2022 8:46 AM FINDINGS: Tubes, catheters and devices: Dual lead right pacemaker. Lungs: Unremarkable. No consolidation. Pleural spaces: Unremarkable. No pleural effusion. No pneumothorax. Heart/Mediastinum: Mild cardiomegaly. Bones/joints: Bilateral mild acromioclavicular joint degenerative disease. XR/XR chest 1V portable [id number] IMPRESSION: No posttraumatic changes in the chest.
--- NOTE | 2023-12-10 13:24 | XRR_ITS ---
PROCEDURE INFORMATION: Exam: XR Left Elbow Exam date and time: 12/10/2023 2:44 PM Age: 78 years old Clinical indication: Injury or trauma; Fall; Blunt trauma (contusions or hematomas); Elbow; Left TECHNIQUE: Imaging protocol: Radiologic exam of the left elbow. Views: 3 or more views. COMPARISON: CR (CHEST, ) 12/10/2023 2:40 PM FINDINGS: Bones/joints: Mild degenerative disease the elbow joint. Enthesophytes at the medial humeral epicondyle. Soft tissues: Normal. XR/XR elbow LT min 3V* [id number] IMPRESSION: No acute fracture or dislocation. No elbow joint effusion..
--- NOTE | 2023-12-10 13:24 | XRR_ITS ---
PROCEDURE INFORMATION: Exam: XR Left Shoulder Exam date and time: 12/10/2023 2:40 PM Age: 78 years old Clinical indication: Injury or trauma; Fall; Blunt trauma (contusions or hematomas); Shoulder; Left TECHNIQUE: Imaging protocol: Radiologic exam of the left shoulder. Views: 2 or more views. COMPARISON: CR XR chest 1V portable [id number] 12/10/2023 2:38 PM FINDINGS: Tubes, catheters and devices: Partially included pacemaker leads. Bones/joints: Moderate degenerative disease of the left acromioclavicular joint. Soft tissues: Normal. XR/XR shoulder LT min 2V* [id number] IMPRESSION: No acute fracture or dislocation.
--- NOTE | 2023-12-10 13:24 | XRR_ITS ---
PROCEDURE INFORMATION: Exam: XR Left Knee Exam date and time: 12/10/2023 2:48 PM Age: 78 years old Clinical indication: Injury or trauma; Fall; Blunt trauma; Knee; Left TECHNIQUE: Imaging protocol: Radiologic exam of the left knee. Views: 3 views. COMPARISON: [place] [id number] 10/27/2020 3:18 PM FINDINGS: Bones/joints: Normal. Soft tissues: Normal. Vasculature: There are vascular calcifications. XR/XR knee LT 3V* [id number] IMPRESSION: No acute fracture or dislocation. No knee joint effusion.
--- NOTE | 2023-12-10 13:31 | ECG_ITS ---
[facility] Test Date: 2023-12-10 Pat Name: Jaleel Latham Department: Room: Gender: Male Eyelet Punch Operator: : [id number] Requested By: Chadwick Ramirez Order Number: [id number] Bart MD: Candido Collado M.D. Measurements Intervals [place] Rate: 74 P: 26 GA: 168 QRS: -83 QRSD: 187 T: 106 QT: 477 QTc: 530 Interpretive Statements ELECTRONIC VENTRICULAR PACEMAKER ABNORMAL RHYTHM ECG Compared to ECG 04/16/2022 08:39:13 No significant changes Electronically Signed On 12-11-2023 7:46:29 SOFTWARE RELIABILITY ENGINEER by Candido Collado M.D. [email or web address]
--- NOTE | 2023-12-10 13:41 | PC.PHAR ---
PT IS [facility] BUT KNOWS HIS MEDICATIONS
[2023-12-10 13:49] VITALS: BP 147/83; PULSE 56; O2SAT 91
--- NOTE | 2023-12-10 13:52 | W.ED.EXTPRO ---
HPI - Extremity Problem General: Chief complaint: Extremity Injury, Lower Stated complaint: left hip pain, left knee pain Time Seen by Provider: 12/10/23 13:21 Source: patient Mode of arrival: wheelchair History of Present Illness: 78-year-old male presents to the emergency room after falling approximately 10 feet onto a wooden floor he is complaining of left elbow left shoulder left hip pain landed almost all entirely on his left side there is no loss consciousness. He has a little bit of chest discomfort as well as no difficulty breathing no abdominal pain. No vomiting since the episode. No obvious deformities. Fall occurred just before arrival here Complaint: extremity pain Onset (ago): minute(s) Pain Consistency: constant Location: left, upper extremity and lower extremity Quality: sharp Radiation: none Relieving factors: nothing Exacerbating factors: nothing Associated symptoms: Reports chest pain; Deny arthralgias, fever(s), myalgias, rash or short of breath Review of Systems Const: Denies: fever(s) Card: Reports: chest pain Resp: Denies: dyspnea GI: Denies: abdominal pain : Denies: dysuria, urinary frequency or urinary urgency Musc: Denies: neck pain or back pain Skin/Breast: Denies: rash PFSH ED PFSH: Medical History Pacemaker BPH (benign prostatic hyperplasia) Heart block AV third degree Hyperlipidemia Hypertension Family History Other Cancer Social History Smoking and tobacco/nicotine status: never used tobacco/nicotine Alcohol intake: never Physical Exam Const: GENERAL APPEARANCE: cooperative and comfortable ORIENTATION/CONSCIOUSNESS: Yes awake, Yes oriented to person, Yes oriented to place and Yes oriented to time HENMT: COMMON NORMALS: normocephalic, atraumatic and hearing grossly normal bilaterally HEAD & SCALP: normocephalic and atraumatic Resp: COMMON NORMALS: normal respiratory effort, No retractions, No use of accessory muscles and clear to auscultation bilaterally AUSCULTATION: clear to auscultation bilaterally Cardio: COMMON NORMALS: regular rate, regular rhythm and No murmurs present (Cardio) RATE: regular rate RHYTHM: regular rhythm GI: COMMON NORMALS: Soft to palpation and No hepatosplenomegaly present AUSCULTATION: Yes normoactive bowel sounds PALPATION: Yes Soft to palpation, No Tenderness to palpation present (GI), No Guarding due to palpation present (GI) and Yes No hepatosplenomegaly present Extremity: OTHER: No obvious deformities of any extremities but the patient does have pain in the left hip left shoulder and elbow neurovascular the extremities are all intact Neuro: SENSORIUM/ORIENTATION: Yes oriented to person, Yes oriented to place and Yes oriented to time Skin: COMMON NORMALS: no rashes or lesions noted GENERAL SKIN EXAM: no rashes or lesions noted Course Vital Signs: Vital signs: Vital Signs Temperature 98.3 F 12/10/23 13:05 Pulse Rate 63 12/10/23 16:36 Respiratory Rate 16 12/10/23 13:05 Blood Pressure 146/58 12/10/23 16:36 Pulse Oximetry 95 12/10/23 16:36 Oxygen Delivery Me thod Room Air 12/10/23 15:36 MDM - Extremity (Nontraumatic) Medical Decision Making Labs and imaging reviewed no acute fractures on the imaging discharge home with pain medications follow-up with primary care return if has worsening pain or symptoms Medical Records I reviewed the patient's medical records. Lab Data I reviewed the patient's lab results. 12/10/23 14:17 12/10/23 14:17 Radiology Impressions Cervical Spine CT 12/10/23 13:21 IMPRESSION: No posttraumatic changes in the cervical spine. COMMENTS: Consistent with the [employer]'s Incidental Findings Committee white paper (J Am Catalina Radiol 2015): In patients aged 35 years and older with an incidental thyroid nodule equal to or greater than 1.[address], MRI or extrathyroidal US, further evaluation with dedicated thyroid US is recommended for patients with normal life expectancy and without comorbidities. For smaller nodules without suspicious features, no further evaluation or follow up is recommended. Head CT 12/10/23 13:21 IMPRESSION: No intracranial posttraumatic changes. Hip/Pelvis X-Ray 12/10/23 13:21 IMPRESSION: No acute fracture or dislocation. Chest X-Ray 12/10/23 13:22 IMPRESSION: No posttraumatic changes in the chest. Elbow X-Ray 12/10/23 13:24 IMPRESSION: No acute fracture or dislocation. No elbow joint effusion.. Knee X-Ray 12/10/23 13:24 IMPRESSION: No acute fracture or dislocation. No knee joint effusion. Shoulder X-Ray 12/10/23 13:24 IMPRESSION: No acute fracture or dislocation. Laboratory Results WBC 9.92 10^3/uL (3.29-11.43) 12/10/23 14:17 RBC 5.09 10^6/uL (3.85-5.65) 12/10/23 14:17 Hgb 15.20 g/dL (11.27-16.99) 12/10/23 14:17 Hct 44.8 % (37-53) 12/10/23 14:17 MCV 88.0 fl (82-101) 12/10/23 14:17 MCH 29.9 pg (27-33) 12/10/23 14:17 MCHC 33.9 g/dL (30-55) 12/10/23 14:17 RDW 12.5 % (12.1-15.1) 12/10/23 14:17 Plt Count 141 10^3/cmm (157-399) L 12/10/23 14:17 MPV 11.9 fL (7.4-10.4) H 12/10/23 14:17 Neut % (Auto) 84.6 % 12/10/23 14:17 Lymph % (Auto) 8.0 % 12/10/23 14:17 [place] % (Auto) 6.4 % 12/10/23 14:17 Eos % (Auto) 0.5 % 12/10/23 14:17 Baso % (Auto) 0.3 % 12/10/23 14:17 Neut # (Auto) 8.40 10^3/uL (1.8-7.7) H 12/10/23 14:17 Lymph # (Auto) 0.8 10^3/uL (0.8-4.8) 12/10/23 14:17 [place] # (Auto) 0.6 10^3/uL (0.2-0.9) 12/10/23 14:17 Eos # (Auto) 0.1 10^3/uL (0.0-0.8) 12/10/23 14:17 Baso # (Auto) 0.0 10^3/uL (0.0-0.1) 12/10/23 14:17 Nucleated RBC % (auto) 0 % 12/10/23 14:17 Nucleated RBCs # 0.0 /100WBC 12/10/23 14:17 Sodium 138 mmol/L (136-145) 12/10/23 14:17 Potassium 4.3 mmol/L (3.5-5.1) 12/10/23 14:17 Chloride 104 mmol/L (98-107) 12/10/23 14:17 Carbon Dioxide 24 mmol/L (22-29) 12/10/23 14:17 Anion Gap 14.3 (5-19) 12/10/23 14:17 BUN 26 mg/dL (8-23) H 12/10/23 14:17 Creatinine 1.2 mg/dL (0.7-1.2) 12/10/23 14:17 GFR Calculation Not Reportable 12/10/23 14:17 Glucose 138 mg/dL (65-115) H 12/10/23 14:17 Calculated Osmolality 293 mOsm/kg (285-295) 12/10/23 14:17 Calcium 8.6 mg/dL (8.5-10.5) 12/10/23 14:17 Total Bilirubin 0.4 mg/dL (0.15-1.2) 12/10/23 14:17 AST 38 U/L (0-40) 12/10/23 14:17 ALT 25 U/L (0-41) 12/10/23 14:17 Alkaline Phosphatase 76 U/L (40-130) 12/10/23 14:17 Total Protein 6.1 g/dL (6.6-8.7) L 12/10/23 14:17 Albumin 3.9 g/dL (3.5-5.2) 12/10/23 14:17 Globulin 2.2 g/dL (1.3-4.6) 12/10/23 14:17 All radiology interpretation(s) finalized by discharge Discharge Plan Discharge Patient Disposition: Home Clinical Impression: Fall Condition: Stable Prescriptions: New tizanidine 4 mg tablet 4 mg PO Q6H PRN (Reason: muscle spasticity) Qty: 20 0RF Rx Instructions: do not exceed 3 doses per 24 hrs hydrocodone-acetaminophen 5-325 mg tablet 1 tab PO Q6H PRN (Reason: pain) Qty: 10 0RF diclofenac sodium 75 mg tablet,delayed release (DR/EC) 75 mg PO Q12H PRN (Reason: pain) Qty: 20 0RF No Action hydralazine 25 mg tablet 25 mg PO BID Rx Instructions: Hold for blood pressure less than 130/80 mm Hg. acetaminophen 500 mg Tablet 500 mg PO BEDTIME tamsulosin 0.4 mg capsule 0.4 mg PO BEDTIME atorvastatin 20 mg tablet 10 mg PO QAM Glucosamine Chondroitin 550-30-1 mg capsule 1 cap PO QPM furosemide 40 mg tablet 20 mg PO DAILY potassium chloride [Klor-Con M10] 10 mEq tablet,ER particles/crystals 5 meq PO DAILY Rx Instructions: take with furosemide Coricidin HBP Cough and Cold 4-30 mg tablet 1 tab PO DAILY PRN (Reason: Cold Symptoms) Vitamin D3 125 mcg (5,000 unit) Tablet 125 mcg PO QPM Discharge Orders: Discharge ED (Routine); Ordered 12/10/23 Ordered By: Chadwick Polanco Referrals: Ariana Diamond MD [Primary Care Provider] - Discharge Diet: Usual diet Discharge Activity: Increase activity as tolerated Patient Instructions: Opioid Safety, Pain Management Activity Restrictions/Additional Instructions: Thank you for choosing [facility] for your healthcare needs today. Please realize this is an emergency room and that we are providing you with a medical screening exam and this may not be complete and all inclusive of all the testing and or work up that you may need to determine your ailment or severity of your illness. It is very important that you follow up as instructed or that you return to the Emergency Department should you have concerns or if your condition changes or worsens in any way. Coding Level of Care Code ED Body Coverer for Rere Callaway
[2023-12-10 14:12] VITALS: PULSE 75; O2SAT 91
[2023-12-10 14:32] LABS: Basophils % 0.3 %; Eosinophils # 0.1 10^3/uL (0.0-0.8); Eosinophils % 0.5 %; Hematocrit 44.8 % (37-53); Lymphocytes # 0.8 10^3/uL (0.8-4.8); Mean Corpuscular HGB Conc 33.9 g/dL (30-55); Mean Corpuscular Hemoglobin 29.9 pg (27-33); Mean Platelet Volume 11.9 fL (7.4-10.4); Monocytes # 0.6 10^3/uL (0.2-0.9); Monocytes % 6.4 %; Neutrophils % 84.6 %; Nucleated Red Blood Cells % 0 %; Platelet Count 141 10^3/cmm (157-399); Red Blood Count 5.09 10^6/uL (3.85-5.65); Red Cell Distribution Width 12.5 % (12.1-15.1); White Blood Count 9.92 10^3/uL (3.29-11.43)
[2023-12-10 14:42] VITALS: PULSE 68; O2SAT 92
[2023-12-10 14:54] LABS: Alanine Aminotransferase 25 U/L (0-41); Albumin Level 3.9 g/dL (3.5-5.2); Alkaline Phosphatase 76 U/L (40-130); Anion Gap 14.3 (5-19); Aspartate Amino Transferase 38 U/L (0-40); Blood Urea Nitrogen 26 mg/dL (8-23); Calcium 8.6 mg/dL (8.5-10.5); Carbon Dioxide 24 mmol/L (22-29); Chloride 104 mmol/L (98-107); Globulin 2.2 g/dL (1.3-4.6); Glucose 138 mg/dL (65-115); Osmolality Calculated 293 mOsm/kg (285-295); Potassium 4.3 mmol/L (3.5-5.1); Sodium 138 mmol/L (136-145); Total Bilirubin 0.4 mg/dL (0.15-1.2); Total Protein 6.1 g/dL (6.6-8.7)
[2023-12-10 15:36] VITALS: BP 146/53; PULSE 62; O2SAT 95
[2023-12-10] MEDS: HYDROcodone-acetaminophen 5-325 mg Tablet 1 TAB PO (15:47)
[2023-12-10] MEDS: tetanus-diphtheria tox (adult) 0.5 mL SDV IM (16:22)
[2023-12-10 16:36] VITALS: BP 146/58; PULSE 63; O2SAT 95
== END 2023-12-10 16:55 | disposition home or self-care (01) ==
PROVIDERS: Emergency Provider Family Medicine; PCP Family Medicine
DX: M25.552 Pain in left hip (principal); M25.512 Pain in left shoulder; M25.522 Pain in left elbow; Z95.0 Presence of cardiac pacemaker; E78.5 Hyperlipidemia, unspecified; I10 Essential (primary) hypertension; W17.89XA Other fall from one level to another, initial encounter; Z23 Encounter for immunization
CPT/HCPCS: 36415; 70450; 71045; 72125; 73030; 73080; 73502; 73562; 80053; 85025; 90471; 90714; 93005; 99285

== ENCOUNTER → 2023-12-28 11:29 | Outpatient (BNVA) | payer OTHER, SELFPAY | PROVIDERS: PCP Family Medicine; Visit Provider Internal Medicine Cardiovascular Disease | DX: Z45.010 Encounter for checking and testing of cardiac pacemaker pulse generator [battery] (principal) | CPT/HCPCS: 93296 ==

== ENCOUNTER → 2024-04-19 10:12 | Outpatient (BNVA) | payer OTHER, SELFPAY | PROVIDERS: PCP Family Medicine; Visit Provider Internal Medicine Cardiovascular Disease | DX: I10 Essential (primary) hypertension (principal); E78.2 Mixed hyperlipidemia; Z95.0 Presence of cardiac pacemaker; R25.2 Cramp and spasm | CPT/HCPCS: 99214 ==

== ENCOUNTER → 2024-11-23 08:58 | Outpatient (BNVA) | payer MEDICARE, OTHER, SELFPAY | PROVIDERS: PCP Family Medicine; Visit Provider Nurse Practitioner Family | DX: I10 Essential (primary) hypertension (principal); I35.1 Nonrheumatic aortic (valve) insufficiency; E78.2 Mixed hyperlipidemia; Z95.0 Presence of cardiac pacemaker; R25.2 Cramp and spasm | CPT/HCPCS: 99214 ==

== ENCOUNTER → 2024-11-28 08:52 | Outpatient (BNVA) | payer OTHER, SELFPAY | PROVIDERS: PCP Family Medicine; Visit Provider Internal Medicine | DX: Z45.018 Encounter for adjustment and management of other part of cardiac pacemaker (principal) | CPT/HCPCS: 93296 ==

== ENCOUNTER 2024-12-31 06:49 | Outpatient (CLI) | payer OTHER, SELFPAY ==
--- NOTE | 2024-12-31 07:00 | USCV_ITS ---
Jaleel Latham Age: 79 Gender: M : 1945 Exam Date: 12/31/2024 07:04 Ordering Phys: Trista Peng NP Technologist: Exam Location: [facility] [place] Indication: ai BP: 150 / 80 HR: 69 Rhythm: Sinus Technical Quality: Adequate MEASUREMENTS (Male / Female) Normal Values 2D ECHO LV Diastolic Diameter PLAX 4.4 cm 4.2 - 5.9 / 3.9 - 5.3 cm IVS Diastolic Thickness 2.4 cm 0.6 - 1.0 / 0.6 - 0.9 cm IVS Systolic Thickness 2.9 cm LVPW Diastolic Thickness 2.0 cm 0.6 - 1.0 / 0.6 - 0.9 cm LVPW Systolic Thickness 2.4 cm LVOT Diameter 2.1 cm LV Ejection Fraction 2D Teich 60.4 % LV Ejection Fraction MOD 4C 56.2 % LV Ejection Fraction MOD 2C 60.1 % LV Ejection Fraction 2C AL 63.0 % LA Diameter 3.5 cm RA Systolic Volume 4C AL 52.0 ml RA Systolic Volume 4C MOD 49.8 ml LA Sys Volume AL 109.3 cm cubed LA Sys Volume Index AL 53.5 cm cubed/m squared Aorta at Sinotubular Diameter 3.6 cm M-MODE LA Ao Ratio MM 1.2 AV Cusp Separation MM 2.5 cm DOPPLER AV Peak Velocity 167.3 cm/s LVOT Peak Velocity 112.0 cm/s AV Area Cont Eq vti 2.4 cm squared AV Area Cont Eq pk 2.2 cm squared MV Peak Velocity 127.0 cm/s MV Area PHT 3.6 cm squared Mitral E to A Ratio 0.7 TV Peak Velocity 179.3 cm/s TR Peak Velocity 259.0 cm/s TR Peak Gradient 26.8 mmHg TV Peak E Velocity 156.0 cm/s PV Peak Velocity 136.0 cm/s FINDINGS Left Ventricle Left ventricle is normal in size. Severe concentric left ventricular hypertrophy. LV systolic function is normal with EF of 55-60%. No regional wall motion abnormalities are seen. Grade 1 diastolic dysfunction. Right Ventricle Normal in size and function. Possible pacemaker lead is seen Right Atrium Normal in size Left Atrium Dilated Mitral Valve Structurally normal mitral valve. Mild mitral regurgitation Aortic Valve Structurally normal aortic valve. No significant stenosis Tricuspid Valve Mild tricuspid regurgitation. Pulmonary artery systolic pressure is normal. Pulmonic Valve Not well visualized Pericardium Normal Aorta Ascending aorta is borderline dilated with diameter of 3.5cm IVC Not visualized CONCLUSIONS LV systolic function is normal with EF of 55-60% Grade 1 diastolic dysfunction Severe concentric left ventricular hypertrophy Mild mitral regurgitation Mild tricuspid regurgitation Ascending aorta is borderline dilated with diameter of 3.5cm John Nobles MD (Electronically Signed) Final Date: 16 January 2025 09:30 S
== END 2024-12-31 06:50 | disposition home or self-care (01) ==
LOC: RAD 06:51
PROVIDERS: PCP Family Medicine; Visit Provider Nurse Practitioner Family
DX: I35.1 Nonrheumatic aortic (valve) insufficiency (principal); R93.1 Abnormal findings on diagnostic imaging of heart and coronary circulation; I34.0 Nonrheumatic mitral (valve) insufficiency; I07.1 Rheumatic tricuspid insufficiency
CPT/HCPCS: 93306

== ENCOUNTER → 2025-05-15 13:22 | Outpatient (BNVA) | payer OTHER, SELFPAY | PROVIDERS: PCP Family Medicine; Visit Provider Internal Medicine Cardiovascular Disease | DX: Z45.018 Encounter for adjustment and management of other part of cardiac pacemaker (principal) | CPT/HCPCS: 93296 ==

== ENCOUNTER → 2025-05-30 11:30 | Outpatient (BNVA) | payer OTHER, SELFPAY | PROVIDERS: PCP Family Medicine; Visit Provider Internal Medicine Cardiovascular Disease | DX: R06.02 Shortness of breath (principal); R25.2 Cramp and spasm | CPT/HCPCS: 36415; 80048; 83735; 99214 ==